=== PATIENT | male | born 1935 | race Caucasian/White ===

== ENCOUNTER 2018-11-29 18:58 | Observation (INO) ==
--- NOTE | 2018-11-29 20:07 | Emergency Department Note ---
Disposition Clinical Impression: Frequent falls, Thrombocytopenia, Delirium Disposition: Admitted As Inpatient Condition: Fair Time of Disposition: 00:35 Recheck wound or abnormal lab - General Chief Complaint: ED Recheck/Abnormal Lab/Rx Stated Complaint: abnormal lab, confusion x 3 wks Time Seen by Provider: 11/29/18 19:11 Source: patient, family Mode of arrival: ambulatory Limitations: no limitations Nursing Notes Reviewed: Yes Vital Signs Reviewed: Yes - History of Present Illness HPI Narrative: 83-year-old male with history of thrombocytopenia arrives to the emergency Department roughly 2-3 weeks of intermittent episodes of confusion. The patient was noted to have a low platelet count at 10 1 day ago upon drawing of labs. In addition the patient is been experiencing intermittent episodes of confusion and intermittent chest pain that occurred roughly 2 hours last night. The patient's significant other was instructed to bring the patient to the emergency department via private vehicle from PCP. Patient denies any complaints at this time other than having numerous falls complaining of some bruising on bilateral aspects of the abdomen. Denies any headache, fevers, chills, difficulty breathing. He is lucid and answering questions appropriately. He is able to an swer what year it is, where he is at and what his name is. - Related Data Home Medications Medication Instructions Recorded Confirmed Albuterol Sulfate [Proair Hfa] 2 puff IH PRN PRN 08/02/16 09/02/18 Amlodipine Besylate 10 mg PO DAILY 08/02/16 09/02/18 Carbidopa/Levodopa 25/100 [Sinemet 1 each PO TID 08/02/16 09/02/18 25/100] Metoprolol Succinate 50 mg PO DAILY 08/02/16 09/02/18 Nitroglycerin [Nitrostat] 0.4 mg SL PRN PRN 08/02/16 09/02/18 Alendronate Sodium [Fosamax] 70 mg PO TH 06/19/17 09/02/18 Atorvastatin Calcium [Lipitor] 20 mg PO DAILY 06/19/17 09/02/18 Cholecalciferol (Vitamin D3) 10,000 unit PO QWEEK 06/19/17 09/02/18 [Vitamin D3] Levothyroxine [Synthroid] 25 mcg PO DAILY 06/19/17 09/02/18 Multivitamin [One Daily Essential] 1 each PO DAILY 06/19/17 09/02/18 Tizanidine HCl [Zanaflex] 4 mg PO DAILY 06/19/17 09/02/18 Gabapentin [Neurontin] 300 mg PO HS 09/02/18 09/02/18 Oxycodone HCl/Acetaminophen 1 each PO HS 09/02/18 09/02/18 [Percocet 5-325 mg Tablet] Allergies Allergy/AdvReac Type Severity Reaction Status Date / Time No Known Allergies Allergy Verified 11/29/18 20:56 All systems ED: reviewed and negative except as stated. Constitutional: Denies: fever, chills, weakness ENT ED: Denies: dysphagia Cardiovascular: Reports: chest pain. Denies: dyspnea on exertion, edema, syncope Respiratory: Denies: dyspnea Gastrointestinal: Reports: abdominal pain. Denies: nausea, vomiting, diarrhea, constipation Genitourinary: Denies: urgency, dysuria Musculoskeletal: Denies: back pain, arthralgia, myalgia Integumentary: Denies: rash Neurological: Reports: confusion. Denies: headache Hematological/Lymphatic: Reports: easy bruising Past Medical History - Past Medical History Attestation: Yes The following information was validated with the patient. Source: patient, old records reviewed Medical history: Reports: cancer, CHF, coronary artery disease, CVA, hyperlipidemia, hypertension, myocardial infarction Surgical history: Reports: angioplasty/stent, cholecystectomy Psychiatric history: Reports: no psych history - Social History Smoking Status: Former smoker Smokeless Tobacco Status: No Alcohol use: Reports: none Drug use: Reports: none Physical Exam - General Limitations: no limitations General appearance: alert, in no apparent distress - Head Head exam: atraumatic, normocephalic, normal inspection - Eye Eye exam: Present: normal appearance - ENT ENT exam: normal exam, normal oropharynx, mucous membranes moist - Neck Neck exam: Present: normal inspection, full ROM, trachea midline - Chest Chest inspection: Present: normal inspection, symmetric chest wall rise - Respiratory Respiratory exam: Present: normal lung sounds bilaterally - Cardiovascular Cardiovascular exam: Present: normal rhythm, bradycardia, normal heart sounds - Abdominal Exam Abdominal exam: Present: soft, Non-Tender, other (Ecchymosis to bilateral flank.). Absent: tenderness, distention, guarding, rebound, rigidity - Extremities Exam Extremities exam: Present: normal inspection, full ROM, normal capillary refill. Absent: tenderness, pedal edema - Neurological Exam Neurological exam: Present: alert, oriented X3 - Skin Skin exam: Present: warm, dry, intact Course Vital Signs Temperature 98.4 F 11/29/18 19:11 Pulse Rate 58 11/29/18 19:11 Respiratory Rate 18 11/29/18 19:11 Blood Pressure 132/79 11/29/18 19:11 O2 Sat by Pulse Oximetry 96 11/29/18 19:11 Temperature 97.9 F 11/29/18 23:19 Pulse Rate 66 11/29/18 23:19 Respiratory Rate 18 11/29/18 23:19 Blood Pressure 146/82 11/29/18 23:19 O2 Sat by Pulse Oximetry 96 11/29/18 23:19 Oxygen Delivery Oxygen Delivery Room Air Recheck wound or abnormal lab - MDM Narrative Medical decision making narrative: Patient's workup in the emergency department demonstrates findings concerning with bruising and bilateral abdominal flanks with a negative CT scan of the abdomen and pelvis. Patient is been expressing multiple falls and combined with his thrombocyte PDM concerned about the patient. The patient will be admitted to the hospital at this time. He had an episode of chest pain one day ago as well. His troponin is negative and EKG given streets no acute process. The patient will be admitted to the hospital given the patient's frequent falls, generalized weakness, intermittent episodes of confusion as well as the patient's thrombocytopenia. Family made aware and agrees to plan. No further questions or concerns noted. - Lab Data Lab results reviewed: Yes I reviewed the patient's lab results. Result diagrams: 11/29/18 19:45 11/29/18 19:45 Lab Results 11/29/18 11/29/18 11/29/18 Range/Units 19:45 19:45 19:45 WBC 4.6 (4.3-11.1) K/mcL RBC 3.78 L (4.19-5.50) M/mcL Hgb 11.3 L (12.9-16.9) g/dL Hct 34.6 L (37.5-50.1) % MCV 91.5 (83.0-100.0) fL MCH 29.9 (28.0-33.3) pg MCHC 32.7 (31.6-35.5) g/dL RDW 13.6 (11.5-14.5) % Plt Count 59 L (140-400) K/mcL MPV 12.6 H (9.4-12.4) fL Seg Neutrophils % 48.0 % Band Neutrophils % 2.0 (0-4) % Lymphocytes % 34.0 % Monocytes % 16.0 % Neutrophils # 2.3 (1.6-8.9) K/mcL Lymphocytes # 1.6 (0.6-4.6) K/mcL Monocytes # 0.7 (0.0-1.3) K/mcL Reactive Lymphocytes Present A (Not Present) Smudge Cells Present A (Not Present) Platelet Estimate Decreased L (Normal) Immature Plt Fraction 9.3 H (1.1-6.1) % PT (9.4-12.1) Seconds INR APTT (26.0-36.0) Seconds Sodium 140 (136-145) mEq/L Potassium 4.2 (3.5-5.1) mEq/L Chloride 108 H (98-107) mEq/L Carbon Dioxide 22 L (23-29) mEq/L BUN 19 (8-23) mg/dL Creatinine 1.68 H (0.70-1.30) mg/dL Est GFR ( Amer) 47 L (> 60) Est GFR (Non-Af Amer) 39 L (> 60) BUN/Creatinine Ratio 11 (6-26) Glucose 99 (70-105) mg/dL Calculated Osmolality 292 (280-300) Calcium 9.1 (8.6-10.3) mg/dL Total Bilirubin 0.6 (0.3-1.0) mg/dL Direct Bilirubin 0.1 (0.0-0.2) mg/dL Indirect Bilirubin 0.5 (0.0-1.2) mg/dL AST 19 (13-39) Units/L ALT 19 (7-52) Units/L Alkaline Phosphatase 63 (34-104) Units/L Troponin I < 0.03 (< 0.04) ng/mL Serum Total Protein 6.9 (6.4-8.9) g/dL Albumin 4.1 (3.5-5.7) g/dL Globulin 2.8 (2.4-3.5) g/dL Albumin/Globulin Ratio 1.5 (1.1-2.2) Blood Type A NEGATIVE Antibody Screen NEGATIVE 11/29/18 Range/Units 19:45 WBC (4.3-11.1) K/mcL RBC (4.19-5.50) M/mcL Hgb (12.9-16.9) g/dL Hct (37.5-50.1) % MCV (83.0-100.0) fL MCH (28.0-33.3) pg MCHC (31.6-35.5) g/dL RDW (11.5-14.5) % Plt Count (140-400) K/mcL MPV (9.4-12.4) fL Seg Neutrophils % % Band Neutrophils % (0-4) % Lymphocytes % % Monocytes % % Neutrophils # (1.6-8.9) K/mcL Lymphocytes # (0.6-4.6) K/mcL Monocytes # (0.0-1.3) K/mcL Reactive Lymphocytes (Not Present) Smudge Cells (Not Present) Platelet Estimate (Normal) Immature Plt Fraction (1.1-6.1) % PT 11.6 (9.4-12.1) Seconds INR 1.0 APTT 31.4 (26.0-36.0) Seconds Sodium (136-145) mEq/L Potassium (3.5-5.1) mEq/L Chloride (98-107) mEq/L Carbon Dioxide (23-29) mEq/L BUN (8-23) mg/dL Creatinine (0.70-1.30) mg/dL Est GFR ( Amer) (> 60) Est GFR (Non-Af Amer) (> 60) BUN/Creatinine Ratio (6-26) Glucose (70-105) mg/dL Calculated Osmolality (280-300) Calcium (8.6-10.3) mg/dL Total Bilirubin (0.3-1.0) mg/dL Direct Bilirubin (0.0-0.2) mg/dL Indirect Bilirubin (0.0-1.2) mg/dL AST (13-39) Units/L ALT (7-52) Units/L Alkaline Phosphatase (34-104) Units/L Troponin I (< 0.04) ng/mL Serum Total Protein (6.4-8.9) g/dL Albumin (3.5-5.7) g/dL Globulin (2.4-3.5) g/dL Albumin/Globulin Ratio (1.1-2.2) Blood Type Antibody Screen - Radiology Data Radiology results reviewed: Yes I reviewed the patient's radiology results. Abdomen/Pelvis CT 11/29/18 19:29 IMPRESSION: Findings in the bladder could represent cystitis or could be secondary to outlet obstruction from prostatomegaly. Abdominal aorta measures up to 3 cm. Current guidelines recommend follow-up every 3 years. D/ / Dudley Montes MD / Dudley Montes MD Interpreting Provider: Dudley Montes MD Head CT 11/29/18 19:29 IMPRESSION: No acute intracranial abnormality. Stable exam. Chronic parenchymal volume loss and chronic white matter microangiopathic ischemic changes. D/ / 11/29/2018 20:29:07 Fer Gandhi MD / rosario Interpreting Provider: Fer Gandhi MD - EKG Data EKG attestation: Yes I reviewed and interpreted this EKG. EKG results narrative: Heart rate 57 beats for minute. Normal sinus rhythm. No ST elevation but mild ST depression noted in lead V2 and V3. Widening QRS consistent with a right bundle branch block. No other acute process noted.
[2018-11-29 20:11] LABS: Hematocrit 34.6 % (37.5-50.1); Hemoglobin 11.3 g/dL (12.9-16.9); Immature Platelets 9.3 % (1.1-6.1); Mean Corpuscular HGB Conc 32.7 g/dL (31.6-35.5); Mean Corpuscular Hemoglobin 29.9 pg (28.0-33.3); Mean Corpuscular Volume 91.5 fL (83.0-100.0); Mean Platelet Volume 12.6 fL (9.4-12.4); Platelet Count 59 K/mcL (140-400); Red Blood Count 3.78 M/mcL (4.19-5.50); Red Cell Distribution Width 13.6 % (11.5-14.5)
[2018-11-29 20:37] LABS: Lymphocytes # 1.6 K/mcL (0.6-4.6); Monocytes # 0.7 K/mcL (0.0-1.3); Neutrophils # 2.3 K/mcL (1.6-8.9); Platelet Estimate Decreased (Normal); Reactive Lymphocytes Present (Not Present); Smudge Cells Present (Not Present)
[2018-11-29 20:38] LABS: Alanine Aminotransferase 19 Units/L (7-52); Albumin 4.1 g/dL (3.5-5.7); Albumin/Globulin Ratio 1.5 (1.1-2.2); Alkaline Phosphatase 63 Units/L (34-104); Aspartate Amino Transferase 19 Units/L (13-39); BUN/Creatinine Ratio 11 (6-26); Bilirubin,Direct 0.1 mg/dL (0.0-0.2); Bilirubin,Indirect 0.5 mg/dL (0.0-1.2); Bilirubin,Total 0.6 mg/dL (0.3-1.0); Blood Urea Nitrogen 19 mg/dL (8-23); Calcium 9.1 mg/dL (8.6-10.3); Carbon Dioxide 22 mEq/L (23-29); Chloride 108 mEq/L (98-107); Globulin 2.8 g/dL (2.4-3.5); Glucose 99 mg/dL (70-105); Osmolality,Calculated 292 (280-300); Potassium 4.2 mEq/L (3.5-5.1); Sodium 140 mEq/L (136-145); Total Protein 6.9 g/dL (6.4-8.9); Troponin I < 0.03 ng/mL (< 0.04); eGFR For Non-African Americans 39 (> 60)
--- NOTE | 2018-11-29 21:16 | Emergency Department Note ---
Disposition Clinical Impression: Frequent falls, Thrombocytopenia, Delirium Disposition: Admitted As Inpatient Condition: Fair General Adult HPI - General Chief complaint: ED Recheck/Abnormal Lab/Rx Stated complaint: abnormal lab, confusion x 3 wks/cp &abd pain Time Seen by Provider: 11/29/18 19:11 Source: patient, family Mode of arrival: ambulatory Limitations: no limitations Nursing Notes Reviewed: Yes Vital Signs Reviewed: Yes - History of Present Illness Pain Scale: 6 - Related Data Home Medications Medication Instructions Recorded Confirmed Albuterol Sulfate [Proair Hfa] 2 puff IH PRN PRN 08/02/16 09/02/18 Amlodipine Besylate 10 mg PO DAILY 08/02/16 09/02/18 Carbidopa/Levodopa 25/100 [Sinemet 1 each PO TID 08/02/16 09/02/18] Metoprolol Succinate 50 mg PO DAILY 08/02/16 09/02/18 Nitroglycerin [Nitrostat] 0.4 mg SL PRN PRN 08/02/16 09/02/18 Alendronate Sodium [Fosamax] 70 mg PO TH 06/19/17 09/02/18 Atorvastatin Calcium [Lipitor] 20 mg PO DAILY 06/19/17 09/02/18 Cholecalciferol (Vitamin D3) 10,000 unit PO QWEEK 06/19/17 09/02/18 [Vitamin D3] Levothyroxine [Synthroid] 25 mcg PO DAILY 06/19/17 09/02/18 Multivitamin [One Daily Essential] 1 each PO DAILY 06/19/17 09/02/18 Tizanidine HCl [Zanaflex] 4 mg PO DAILY 06/19/17 09/02/18 Gabapentin [Neurontin] 300 mg PO HS 09/02/18 09/02/18 Oxycodone HCl/Acetaminophen 1 each PO HS 09/02/18 09/02/18 [Percocet 5-325 mg Tablet] Allergies Allergy/AdvReac Type Severity Reaction Status Date / Time No Known Allergies Allergy Verified 11/29/18 20:56 Constitutional: Denies: fever, chills, weakness ENT ED: Denies: dysphagia Cardiovascular: Reports: chest pain. Denies: dyspnea on exertion, edema, syncope Respiratory: Denies: dyspnea Gastrointestinal: Reports: abdominal pain. Denies: nausea, vomiting, diarrhea, constipation Genitourinary: Denies: urgency, dysuria Musculoskeletal: Denies: back pain, arthralgia, myalgia Integumentary: Denies: rash Neurological: Reports: confusion. Denies: headache Hematological/Lymphatic: Reports: easy bruising Past Medical History - Past Medical History Medical history: Reports: cancer, CHF, coronary artery disease, CVA, hyperlipidemia, hypertension, myocardial infarction Surgical history: Reports: angioplasty/stent, cholecystectomy Psychiatric history: Reports: no psych history - Social History Smoking Status: Former smoker Smokeless Tobacco Status: No Alcohol use: Reports: none Drug use: Reports: none Physical Exam - General Limitations: no limitations General appearance: alert, in no apparent distress Course Vital Signs Temperature 98.4 F 11/29/18 19:11 Pulse Rate 58 11/29/18 19:11 Respiratory Rate 18 11/29/18 19:11 Blood Pressure 132/79 11/29/18 19:11 O2 Sat by Pulse Oximetry 96 11/29/18 19:11 Temperature 98.2 F 11/30/18 03:53 Pulse Rate 75 11/30/18 03:53 Respiratory Rate 16 11/30/18 03:53 Blood Pressure 122/63 11/30/18 03:53 O2 Sat by Pulse Oximetry 94 11/30/18 03:53 Oxygen Delivery Oxygen Delivery Room Air Medical Decision Making - Medical Records Medical records reviewed: Yes I reviewed the patient's medical records. - Lab Data Lab results reviewed: Yes I reviewed the patient's lab results. Result diagrams: 11/29/18 19:45 11/29/18 19:45 Lab Results 11/29/18 11/29/18 11/29/18 Range/Units 19:45 19:45 19:45 WBC 4.6 (4.3-11.1) K/mcL RBC 3.78 L (4.19-5.50) M/mcL Hgb 11.3 L (12.9-16.9) g/dL Hct 34.6 L (37.5-50.1) % MCV 91.5 (83.0-100.0) fL MCH 29.9 (28.0-33.3) pg MCHC 32.7 (31.6-35.5) g/dL RDW 13.6 (11.5-14.5) % Plt Count 59 L (140-400) K/mcL MPV 12.6 H (9.4-12.4) fL Seg Neutrophils % 48.0 % Band Neutrophils % 2.0 (0-4) % Lymphocytes % 34.0 % Monocytes % 16.0 % Neutrophils # 2.3 (1.6-8.9) K/mcL Lymphocytes # 1.6 (0.6-4.6) K/mcL Monocytes # 0.7 (0.0-1.3) K/mcL Reactive Lymphocytes Present A (Not Present) Smudge Cells Present A (Not Present) Platelet Estimate Decreased L (Normal) Immature Plt Fraction 9.3 H (1.1-6.1) % PT (9.4-12.1) Seconds INR APTT (26.0-36.0) Seconds Sodium 140 (136-145) mEq/L Potassium 4.2 (3.5-5.1) mEq/L Chloride 108 H (98-107) mEq/L Carbon Dioxide 22 L (23-29) mEq/L BUN 19 (8-23) mg/dL Creatinine 1.68 H (0.70-1.30) mg/dL Est GFR ( Amer) 47 L (> 60) Est GFR (Non-Af Amer) 39 L (> 60) BUN/Creatinine Ratio 11 (6-26) Glucose 99 (70-105) mg/dL Calculated Osmolality 292 (280-300) Calcium 9.1 (8.6-10.3) mg/dL Total Bilirubin 0.6 (0.3-1.0) mg/dL Direct Bilirubin 0.1 (0.0-0.2) mg/dL Indirect Bilirubin 0.5 (0.0-1.2) mg/dL AST 19 (13-39) Units/L ALT 19 (7-52) Units/L Alkaline Phosphatase 63 (34-104) Units/L Troponin I < 0.03 (< 0.04) ng/mL Serum Total Protein 6.9 (6.4-8.9) g/dL Albumin 4.1 (3.5-5.7) g/dL Globulin 2.8 (2.4-3.5) g/dL Albumin/Globulin Ratio 1.5 (1.1-2.2) Blood Type A NEGATIVE Antibody Screen NEGATIVE 11/29/18 Range/Units 19:45 WBC (4.3-11.1) K/mcL RBC (4.19-5.50) M/mcL Hgb (12.9-16.9) g/dL Hct (37.5-50.1) % MCV (83.0-100.0) fL MCH (28.0-33.3) pg MCHC (31.6-35.5) g/dL RDW (11.5-14.5) % Plt Count (140-400) K/mcL MPV (9.4-12.4) fL Seg Neutrophils % % Band Neutrophils % (0-4) % Lymphocytes % % Monocytes % % Neutrophils # (1.6-8.9) K/mcL Lymphocytes # (0.6-4.6) K/mcL Monocytes # (0.0-1.3) K/mcL Reactive Lymphocytes (Not Present) Smudge Cells (Not Present) Platelet Estimate (Normal) Immature Plt Fraction (1.1-6.1) % PT 11.6 (9.4-12.1) Seconds INR 1.0 APTT 31.4 (26.0-36.0) Seconds Sodium (136-145) mEq/L Potassium (3.5-5.1) mEq/L Chloride (98-107) mEq/L Carbon Dioxide (23-29) mEq/L BUN (8-23) mg/dL Creatinine (0.70-1.30) mg/dL Est GFR ( Amer) (> 60) Est GFR (Non-Af Amer) (> 60) BUN/Creatinine Ratio (6-26) Glucose (70-105) mg/dL Calculated Osmolality (280-300) Calcium (8.6-10.3) mg/dL Total Bilirubin (0.3-1.0) mg/dL Direct Bilirubin (0.0-0.2) mg/dL Indirect Bilirubin (0.0-1.2) mg/dL AST (13-39) Units/L ALT (7-52) Units/L Alkaline Phosphatase (34-104) Units/L Troponin I (< 0.04) ng/mL Serum Total Protein (6.4-8.9) g/dL Albumin (3.5-5.7) g/dL Globulin (2.4-3.5) g/dL Albumin/Globulin Ratio (1.1-2.2) Blood Type Antibody Screen - Radiology Data Radiology results reviewed: Yes I reviewed the patient's radiology results. Abdomen/Pelvis CT 11/29/18 19:29 IMPRESSION: Findings in the bladder could represent cystitis or could be secondary to outlet obstruction from prostatomegaly. Abdominal aorta measures up to 3 cm. Current guidelines recommend follow-up every 3 years. D/ / Dudley Montes MD / Dudley Montes MD Interpreting Provider: Dudley Montes MD Head CT 11/29/18 19:29 IMPRESSION: No acute intracranial abnormality. Stable exam. Chronic parenchymal volume loss and chronic white matter microangiopathic ischemic changes. D/ / 11/29/2018 20:29:07 Fer Gandhi MD / rosario Interpreting Provider: Fer Gandhi MD - EKG Data EKG #1 EKG attestation: Yes I reviewed and interpreted this EKG. EKG results narrative: EKG shows sinus bradycardia with rate of 57. PACs. No ST segment elevation or depression. Attestation Statement - Attestation Attestation: I, Jose Reddy MD, personally evaluated this patient and discussed their m anagement with the resident physician. I reviewed the resident's note and agree with the documented findings, medical decision making, and plan of care. 83-year-old male presents to the emergency department with complaint of low platelets. reports he has a history of low platelets. She reports that over the past 3 weeks patient has had increased confusion episodically. He is a lso had increased generalized weakness and frequent falls. He has not hit his head. He was seen by his PCP 2 days ago for the confusion and had lab work done. Apparently they were called at home today and advised that his platelets 10 and he needed to come immediately to the emergency department. Patient has had no abnormal bleeding. No melena or hematochezia. No hematuria. No epistaxis. He does have multiple bruises from falling but states he has always bruised easily and this is not unusual. He has followed by hematology oncology for his thrombocytopenia per . also reports that last night during the night he had an episode of severe substernal chest pain that lasted about 2 hours. She states he was short of breath and diaphoretic with the chest pain. Patient describes it as indigestion. He does have a history of coronary artery stents. He denies chest pain at present. On examination patient is a well-developed well-nourished well-appearing elderly male in no acute distress. He is alert and oriented 3. There is no cyanosis or diaphoresis. Chest is nontender to palpation. Breath sounds are clear and equal bilaterally. Heart regular rate and rhythm. Abdomen soft and nontender with normal bowel sounds. EKG shows sinus bradycardia with a rate of 57 with PACs. No acute ischemic changes. Head CT negative. CT the abdomen and pelvis negative for acute abnormality. Labs reviewed. Platelets 59. The hospitalist, Dr. Zamarripa, was consulted and accepted admission of the patient.
[2018-11-29 21:37] LABS: Prothrombin Time 11.6 Seconds (9.4-12.1)
[2018-11-29 21:40] LABS: Activated Partial Thrombo Time 31.4 Seconds (26.0-36.0)
[2018-11-29 22:07] LABS: Bilirubin,Urine Negative (Negative); Blood,Urine Negative (Negative); Clarity,Urine Clear (Clear); Color,Urine Yellow (Yellow); Glucose,Urine (UA) Normal (Normal); Ketones,Urine Negative (Negative); Leukocyte Esterase,Urine Trace (Negative); Nitrite,Urine Negative (Negative); Protein,Urine 100 mg/dL (Neg-Trace); Specific Gravity,Urine 1.013 (1.010-1.025); Urobilinogen,Urine Normal (Normal)
[2018-11-29 22:09] LABS: Bacteria,Urine None Seen per hpf (None-Few); Hyaline Casts,Urine None Seen per lpf (None-Few); RBC,Urine 0-3 per hpf (0-3); Squamous Epithelial Cell,Urine Many per lpf (None-Few)
[2018-11-29] MEDS ORDERED: Naloxone 0.4 MG/ML INJ IVP PRN (23:31)
[2018-11-29] MEDS ORDERED: Acetaminophen 325 MG TABLET PO PRN (23:31)
[2018-11-29] MEDS ORDERED: Ondansetron 4 MG/2 ML VIAL IVP PRN (23:31)
[2018-11-30] MEDS: 0.9 % Sodium Chloride 1,000 ML IVC SCH ×2 (00:32→13:36)
--- NOTE | 2018-11-30 01:20 | Internal Med History&Physical ---
Date of Encounter: 11/29/18 Time of Encounter: 22:00 Internal Medicine - H&P: HPI Chief complaint: falls; bruising; weakness Admitted From: Emergency Dept Plans for Post Hospital Care: Home History of present illness: Mr. Lau is an 83 year old male who presents with history of increased falling lately, bruising to his chest and abdomen, and increasing episodes of forgetfulness. Workup in ER revealed patient to be thrombocytopenic. This prompted imaging of his head which was negative. He also had CT of abdomen and pelvis which suggested possible cystitis. Otherwise, imaging findings were negative. Because of his falling risk and thrombocytopenia, patient was admitted to hospitalist service. Of note, there were verbal reports by family stating he had blood work done by his PCP a few days ago with platelet count of 10,000. Upon my assessment of the patient, he and his confirmed the above history. Patient is completely alert and oriented 3. 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 He has no altered mental status. However, his states he has been having bouts of increased forgetfulness over the last 3-4 weeks. He has no history of dementia, but she is concerned he might be developing dementia. He has had no head trauma whatsoever. He did fall in the bathtub yesterday and today sustaining injury to his left rib cage and right abdomen area. I reviewed old records and note that he has chronic thrombocytopenia and is followed with oncology here. He has had workup in the past which was negative. His platelet count runs on average around 70-80,000. He has had no fever, cough, congestion, chest pain, shortness of breath, vomiting, diarrhea, dysuria, or hematuria. Oral and fluid intake have been normal. He has difficulty ambulating due to his old stroke. He uses a motorized scooter, but he does ambulate some with assistance from his . The left-sided deficits are chronic and not new. Past Med Surg Social Fam HX - Past Medical History Attestation: Yes The following information was validated with the patient. Source: patient, old records reviewed, obtained from family Medical history: cancer, CHF, coronary artery disease, CVA, hyperlipidemia, hypertension, myocardial infarction Additional medical history: skin cancer Psychiatric history: no psych history - Past Surgical History Surgical History: angioplasty/stent, cholecystectomy Additional surgical history: cardiac stents x 2 - Social History Smoking Status: Former smoker Smokeless Tobacco Status: No Alcohol use: none Drug use: none Current living situation: Home, With Family Activity Level: Mostly sedentary, Other (scooter) Recent Out of Country Travel Within the Last 8 Weeks: No - Family History Mother Living Status: Hx Family Neuromuscular Disorders: No Hx Family Neurologic Disorders: No Father Living Status: Hx Family Neurologic Disorders: No Internal Medicine - H&P: Meds Albuterol Sulfate [Proair Hfa] 2 puff IH PRN PRN 08/02/16 [History] Amlodipine Besylate 10 mg PO DAILY 08/02/16 [History] Carbidopa/Levodopa 25/100 [Sinemet 25/] 1 each PO TID 08/02/16 [History] Metoprolol Succinate 50 mg PO DAILY 08/02/16 [History] Nitroglycerin [Nitrostat] 0.4 mg SL PRN PRN 08/02/16 [History] Alendronate Sodium [Fosamax] 70 mg PO TH 06/19/17 [History] Atorvastatin Calcium [Lipitor] 20 mg PO DAILY 06/19/17 [History] Cholecalciferol (Vitamin D3) [Vitamin D3] 10,000 unit PO QWEEK 06/19/17 [History] Levothyroxine [Synthroid] 25 mcg PO DAILY 06/19/17 [History] Multivitamin [One Daily Essential] 1 each PO DAILY 06/19/17 [History] Tizanidine HCl [Zanaflex] 4 mg PO DAILY 06/19/17 [History] Gabapentin [Neurontin] 300 mg PO HS 09/02/18 [History] Oxycodone HCl/Acetaminophen [Percocet 5-325 mg Tablet] 1 each PO HS 09/02/18 [History] Allergy/AdvReac Type Severity Reaction Status Date / Time No Known Allergies Allergy Verified 11/29/18 20:56 - Constitutional Constitutional: falls, no chills, no fever(s), no night sweats - EENT Eyes: no blurry vision, no change in vision Ears: no ear pain, no tinnitus Nose, mouth and throat: no nasal congestion, no sinus pressure, no sore throat - Cardiovascular Cardiovascular ROS IM: no chest pain, no dyspnea, no lightheadedness, no ortho pnea, no paroxysmal nocturnal dyspnea, no syncope - Respiratory Respiratory: no cough, no chest congestion, no excessive phlegm production, no change in phlegm color, no pain with cough - Gastrointestinal Gastrointestinal: no abdominal pain, no diarrhea, no hematemesis, no hematochezia, no melena, no vomiting - Genitourinary Genitourinary ROS male: no dysuria, no flank pain, no hematuria - Musculoskeletal Musculoskeletal ROS IM: no arthralgias, no back pain - Integumentary Integumentary IM: no rash, no jaundice - Neurological Neurological ROS: frequent falls, no confusion, no convulsions, no dizziness, no focal weakness, no headache(s), no numbness, no paresthesias, no vertigo Additional comments: + chronic left sided weakness LUE/LLE - Psychiatric Psychiatric: no anxiety, no depression - Endocrine Endocrine IM: no cold intolerance, no heat intolerance, no polydipsia, no polyuria - Hematologic/Lymphatic Hematologic/Lymphatic: easy bruising - Allergic/Immunologic Allergic/Immunologic: no GI upset with certain foods - Constitutional Vitals: Temp Pulse Resp BP Pulse Ox 97.9 F 66 18 146/82 96 11/29/18 23:19 11/29/18 23:19 11/29/18 23:19 11/29/18 23:19 11/29/18 23:19 General appearance: Present: cooperative, A&O X 3, pleasant, answers questions appropriately Exam: see below - Head Head exam: Present: atraumatic, normal inspection, normocephalic Additional comments: no sign of head injury, bruising, or laceration - Eye Eye exam: Present: EOMI, PERRL. Absent: scleral icterus Pupils: Absent: normal accommodation - ENT ENT exam: Present: mucous membranes dry, normal exam, normal oropharynx - Neck Neck exam general surgery: Present: full ROM, normal inspection, supple, trachea midline. Absent: tenderness, nuchal rigidity, thyromegaly - Respiratory Respiratory exam: Present: CTAB. Absent: chest wall tenderness, rales, respiratory distress, rhonchi, wheezes - Cardiovascular Cardiovascular exam: Present: distant heart sounds, +S1, +S2. Absent: diastolic murmur, systolic murmur Additional comments: occasional ectopy - GI/Abdominal GI/Abdominal exam: Present: soft. Absent: guarding, hepatomegaly, rebound, splenomegaly, tenderness Additional comments: bruising to left upper anterior/side flank area and right anterior area - Extremities Exam Extremities exam: Present: joint swelling, normal capillary refill, warm, radial pulses palpable and symmetrical. Absent: calf tenderness, pedal edema, tenderness - Back Exam Back exam: Absent: CVA tenderness (L), CVA tenderness (R) - Neurological Exam Neurological exam: Present: alert, CN II-XII intact, oriented X3. Absent: no focal deficits (left sided weakness in LUE/LLE - chronic) - Psychiatric Psychiatric exam: Present: normal affect, normal mood - Skin Skin exam: Present: dry, intact, warm Internal Med - H&P Results - Labs CBC & Chem 7: 11/29/18 19:45 11/29/18 19:45 Labs: Short CBC 11/29/18 Range/Units 19:45 WBC 4.6 (4.3-11.1) K/mcL Hgb 11.3 L (12.9-16.9) g/dL Hct 34.6 L (37.5-50.1) % Plt Count 59 L (140-400) K/mcL Neutrophils # 2.3 (1.6-8.9) K/mcL BMP 11/29/18 19:45 Sodium 140 Potassium 4.2 Chloride 108 H Carbon Dioxide 22 L BUN 19 Creatinine 1.68 H Glucose 99 Calcium 9.1 Cardiac Enzymes 11/29/18 Range/Units 19:45 Troponin I < 0.03 (< 0.04) ng/mL Liver Function 11/29/18 Range/Units 19:45 Total Bilirubin 0.6 (0.3-1.0) mg/dL Direct Bilirubin 0.1 (0.0-0.2) mg/dL AST 19 (13-39) Units/L ALT 19 (7-52) Units/L Alkaline Phosphatase 63 (34-104) Units/L Albumin 4.1 (3.5-5.7) g/dL Urine 11/29/18 Range/Units 21:50 Urine Color Yellow (Yellow) Urine Clarity Clear (Clear) Urine pH 6.0 (5.0-8.0) pH Units Ur Specific Wilson 1.013 (1.010-1.025) Urine Protein 100 H (Neg-Trace) mg/dL Urine Glucose (UA) Normal (Normal) mg/dL - EKG Data -: EKG Interpreted by Myself - EKG Data Prior EKG available for review: yes When compared to previous EKG: there is no significant change EKG comments: 11/30/18 01:26 sinus rhythm with PAC's; no acute changes - Impressions ITS Impressions Abdomen/Pelvis CT 11/29/18 19:29 IMPRESSION: Findings in the bladder could represent cystitis or could be secondary to outlet obstruction from prostatomegaly. Abdominal aorta measures up to 3 cm. Current guidelines recommend follow-up every 3 years. D/ / Dudley Montes MD / Dudley Montes MD Interpreting Provider: Dudley Montes MD Head CT 11/29/18 19:29 IMPRESSION: No acute intracranial abnormality. Stable exam. Chronic parenchymal volume loss and chronic white matter microangiopathic ischemic changes. D/ / 11/29/2018 20:29:07 Fer Gandhi MD / rosario Interpreting Provider: Fer Gandhi MD - Diagnostic Studies CT scan - head Status: image reviewed by me (negative) - Assessment and Plan (1) Frequent falls Current Visit: Yes Status: Acute Assessment and plan: 1. Will place in fall precautions. 2. Consult PT/OT. 3. Neurochecks ordered. (2) CAD (coronary artery disease) Current Visit: Yes Status: Chronic Assessment and plan: 1. No current symptoms. 2. Resume home meds as appropriate once verified. 3. Hold ASA/Plavix due to thrombocytopenia and falling. 4. Monitor on telemetry. Qualifiers: Coronary Disease-Associated Artery/Lesion type: [place] artery [place] vs. transplanted heart: [place] heart Associated angina: without angina Qualified Code(s): I25.10 - Atherosclerotic heart disease of [place] coronary artery without angina pectoris (3) Thrombocytopenia Current Visit: Yes Status: Chronic Assessment and plan: 1. Monitor platelet count. 2. Falls precautions. 3. Consult hematology for guidance, further work-up as necessary. (4) Altered mental status Current Visit: Yes Status: Ruled-out Assessment and plan: 1. Based upon history and exam, patient exhibits no sign of encephalopathy. 2. reports periods of chronic forgetfulness which may be a sign of dementia symptoms. 3. Monitor clinically. Qualifiers: Altered mental status type: unspecified Qualified Code(s): R41.82 - Altered mental status, unspecified (5) DVT prophylaxis Current Visit: Yes Status: Acute Assessment and plan: 1. EPCD's.
[2018-11-30 07:28] LABS: Basophils % 0.3 %; Eosinophils % 0.6 %; Hematocrit 32.5 % (37.5-50.1); Hemoglobin 10.7 g/dL (12.9-16.9); Immature Granulocytes % 1.7 % (0-4); Immature Platelets 9.1 % (1.1-6.1); Lymphocytes # 1.2 K/mcL (0.6-4.6); Lymphocytes % 32.3 %; Mean Corpuscular HGB Conc 32.9 g/dL (31.6-35.5); Mean Corpuscular Hemoglobin 30.1 pg (28.0-33.3); Mean Corpuscular Volume 91.3 fL (83.0-100.0); Mean Platelet Volume 12.7 fL (9.4-12.4); Monocytes # 0.9 K/mcL (0.0-1.3); Monocytes % 23.9 %; Neutrophils # 1.5 K/mcL (1.6-8.9); Red Blood Count 3.56 M/mcL (4.19-5.50); Red Cell Distribution Width 13.5 % (11.5-14.5); Segmented Neutrophils % 41.2 %
[2018-11-30 07:37] LABS: Platelet Count 53 K/mcL (140-400)
[2018-11-30 07:38] LABS: Platelet Estimate Decreased (Normal); Prothrombin Time 11.7 Seconds (9.4-12.1)
[2018-11-30 07:41] LABS: Activated Partial Thrombo Time 30.6 Seconds (26.0-36.0); Albumin 3.8 g/dL (3.5-5.7); Albumin/Globulin Ratio 1.4 (1.1-2.2); Bilirubin,Total 0.5 mg/dL (0.3-1.0); Calcium 8.7 mg/dL (8.6-10.3); Globulin 2.8 g/dL (2.4-3.5); Magnesium 1.6 mg/dL (1.6-2.6); Potassium 4.2 mEq/L (3.5-5.1); Total Protein 6.6 g/dL (6.4-8.9)
--- NOTE | 2018-11-30 09:21 | Oncology Inp Consult Note ---
Date of Encounter: 11/30/18 Time of Encounter: 09:00 Assessment and Plan (1) Thrombocytopenia Status: Chronic Assessment and plan: Thrombocytopenia: since , w/u negative--including flow cytometry, over years of progressed currently around 50,000. Patient has had chronic bruising episodes, bruising secondary to falls. No evidence of mucous membrane bleeding. Mild leukopenia anemia we will obtain additional labs today. We will follow platelet trend and treat him with his platelets declined/evidence of ac bleeding UA negative Hx heart disease and CVA, CVA/dementia per hx-wkness, PT/placement once stable Bilateral pulmonary nodules: Stable over detention I discussed above plan this AM with pt bedside - Data of Consult Requesting Physician: Allan Zamarripa MD Primary Care Provider: Prema Raines - Consult Narrative Reason for consult: thrombocytopenia History of present illness: 83 yo male patient with thrombocytopenia-cr since and mild anemia since --mild, (plt 130--98k), COPD, dementia, CHF, coronary artery disease, s/p stents, CVA, hyperlipidemia, hypertension, myocardial infarction, nonmelanoma skin cancer, left-sided weakness from previous CVA no alcohol use, prior ultrasound negative for hepatosplenomegaly as well as recent CT imaging of the abdomen without contrast, presented with frequent falls and bruising secondary to falls and generalized weakness. Patient is hard to understand when he speaks but reports that he had fallen and had sustained left side abdominal bruise. He denies any nosebleeds or blood in his stool that he has noticed. Patient carries a diagnosis of ITP, from his prior hematology visits. He denies any dysuria or diarrhea. He has chronic stable pulmonary nodules dating back to 2012. A CT head done in the emergency room did not show any acute findings. He requires a wheelchair for ambulation due to CVA, per records Past Med Surg Social Fam HX - Past Medical History Medical history: cancer, CHF, coronary artery disease, CVA, hyperlipidemia, hypertension, myocardial infarction Additional medical history: skin cancer Psychiatric history: no psych history - Past Surgical History Surgical History: angioplasty/stent, cholecystectomy Additional surgical history: cardiac stents x 2 - Social History Smoking Status: Former smoker Smokeless Tobacco Status: No Alcohol use: none Drug use: none - Family History Mother Living Status: Hx Family Neuromuscular Disorders: No Hx Family Neurologic Disorders: No Father Living Status: Hx Family Neurologic Disorders: No Medications and Allergies Albuterol Sulfate [Proair Hfa] 2 puff IH PRN PRN 08/02/16 [History] Amlodipine Besylate 10 mg PO DAILY 08/02/16 [History] Carbidopa/Levodopa 25/100 [Sinemet 25/100] 1 each PO TID 08/02/16 [History] Metoprolol Succinate 50 mg PO DAILY 08/02/16 [History] Nitroglycerin [Nitrostat] 0.4 mg SL PRN PRN 08/02/16 [History] Alendronate Sodium [Fosamax] 70 mg PO TH 06/19/17 [History] Atorvastatin Calcium [Lipitor] 20 mg PO DAILY 06/19/17 [History] Cholecalciferol (Vitamin D3) [Vitamin D3] 10,000 unit PO QWEEK 06/19/17 [History] Levothyroxine [Synthroid] 25 mcg PO DAILY 06/19/17 [History] Multivitamin [One Daily Essential] 1 each PO DAILY 06/19/17 [History] Tizanidine HCl [Zanaflex] 4 mg PO DAILY 06/19/17 [History] Gabapentin [Neurontin] 300 mg PO HS 09/02/18 [History] Oxycodone HCl/Acetaminophen [Percocet 5-325 mg Tablet] 1 each PO HS 09/02/18 [History] Allergy/AdvReac Type Severity Reaction Status Date / Time No Known Allergies Allergy Verified 11/29/18 20:56 Constitutional: Present: fatigue, frequent falls Additional comments: no epistaxis Additional comments: denied cp, sob with exertion+ Additional comments: no abd pain, kristina or hematochezia Musculoskeletal: Present: abnormal gait Additional comments: hx cva lt wkness Additional comments: low plt, easy bruising Oncology - Exam - Constitutional Vitals: per [employer] vss - Head Head exam: Present: atraumatic, normal inspection - ENT Additional comments: oral cavity-food particles, no blood clots - Neck Neck exam: Present: full ROM Additional comments: no masses palpated - Respiratory Respiratory exam: Present: CTAB - Cardiovascular Cardiovascular exam: Present: +S1, +S2, systolic murmur - GI/Abdominal GI/Abdominal exam: Present: normal bowel sounds, soft - Extremities Exam Additional comments: no pedal edema, upper ext skin changes bruising - Neurological Exam Neurological exam: Present: abnormal gait, alert Additional comments: lt wkness, speech difficulty - Psychiatric Psychiatric exam: Present: normal mood - Skin Additional comments: bruising in the ext inspected Oncology Inpatient Results CT head CT abd no ac findings, possible cystitis Consult Discharge Plan - Plan Referrals: Prema Raines CNP [Primary Care Provider] - Inpatient Charges Provider: Dr. Blanca Manriquez Follow up - Inpatient: [id number] Consult - Observation: [id number]
[2018-11-30 13:18] LABS: Folate 9.4 ng/mL (3.0-16.0)
[2018-12-01 03:54] LABS: Hematocrit 33.4 % (37.5-50.1); Hemoglobin 10.7 g/dL (12.9-16.9); Mean Corpuscular Hemoglobin 29.3 pg (28.0-33.3); Mean Corpuscular Volume 91.5 fL (83.0-100.0); Mean Platelet Volume 12.2 fL (9.4-12.4); Red Blood Count 3.65 M/mcL (4.19-5.50); Red Cell Distribution Width 13.5 % (11.5-14.5)
[2018-12-01 03:56] LABS: Platelet Count 52 K/mcL (140-400)
[2018-12-01 04:17] LABS: Calcium 9.1 mg/dL (8.6-10.3); Potassium 3.9 mEq/L (3.5-5.1)
[2018-12-01 07:32] VITALS: BP 126/68
--- NOTE | 2018-12-01 08:50 | Discharge Summary ---
- NOTES TO OUTPATIENT PROVIDER Notes to Outpatient Provider: f/u with oncology within 2 weeks. f/u with PCP within one week. Orders not resulted at time of discharge: Pending orders 11/29/18 19:18 ECG 12 lead ECG [ECG] Stat 11/30/18 06:00 ECG 12 lead ECG [ECG] AM 0600 11/30/18 12:03 MMA (VIT B12 STATUS) Routine Date of Encounter: 12/01/18 Time of Encounter: 08:48 - Discharge Diagnosis (1) Thrombocytopenia Priority: Secondary Status: Chronic (2) Frequent falls Priority: Primary Status: Acute (3) CAD (coronary artery disease) Priority: Secondary Status: Chronic Qualifiers: Coronary Disease-Associated Artery/Lesion type: [place] artery [place] vs. transplanted heart: [place] heart Associated angina: without angina Qualified Code(s): I25.10 - Atherosclerotic heart disease of [place] coronary artery without angina pectoris (4) DVT prophylaxis Priority: Primary Status: Acute (5) Altered mental status Priority: Primary Status: Ruled-out Qualifiers: Altered mental status type: unspecified Qualified Code(s): R41.82 - Altered mental status, unspecified Hospital course: Mr. Lau is an 83 year old male who presents with history of increased falling lately, bruising to his chest and abdomen, and increasing episodes of forgetfulness. Workup in ER revealed patient to be thrombocytopenic. This prompted imaging of his head which was negative. He also had CT of abdomen and pelvis which suggested possible cystitis. Otherwise, imaging findings were negative. Because of his falling risk and thrombocytopenia, patient was admitted to hospitalist service. Of note, there were verbal reports by family stating he had blood work done by his PCP a few days ago with platelet count of 10,000. While in the ED, patient is completely alert and oriented 3. 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 He has no altered mental status. However, his states he has been having bouts of increased forgetfulness over the last 3-4 weeks. He has no history of dementia, but she is concerned he might be developing demen tia. He has had no head trauma whatsoever. He did fall in the bathtub yesterday and today sustaining injury to his left rib cage and right abdomen area. On physical exam, skin ecchymosis was noted on the left abdomen and flank. CT head was negative for bleeding or fracture. CT abdomen was unremarkable. Hematology was consulted, several tests were ordered. While in the hospital, patient vital signs were stable, platelet was stable, no active bleeding. PT/OT was consulted, however, patient stated that he will not go to rehabilitation facility/ECF even if the PT/OT recommended. After dis cussed with patient, , and another family member, we will discharge patient today, we will resume his home health care. He will follow up with oncology within 2 weeks. Discharge discussed with: patient Time spent discussing smoking cessation with patient: more than 10 minutes - Time Spent with Patient Total time spent providing and/or coordinating discharge services: Time spent: Greater than 30 minutes - Discharge Medications Prescriptions: Continue Amlodipine Besylate 10 mg PO DAILY Albuterol Sulfate [Proair Hfa] 2 puff IH PRN PRN PRN Reason: Shortness Of Breath Nitroglycerin [Nitrostat] 0.4 mg SL PRN PRN PRN Reason: Chest Pain Carbidopa/Levodopa 25/100 [Sinemet 25/100] 1 each PO TID Metoprolol Succinate 50 mg PO DAILY Tizanidine HCl [Zanaflex] 4 mg PO DAILY Atorvastatin Calcium [Lipitor] 20 mg PO DAILY Levothyroxine [Synthroid] 25 mcg PO DAILY Multivitamin [One Daily Essential] 1 each PO DAILY Cholecalciferol (Vitamin D3) [Vitamin D3] 10,000 unit PO QWEEK Alendronate Sodium [Fosamax] 70 mg PO TH Gabapentin [Neurontin] 300 mg PO HS Oxycodone HCl/Acetaminophen [Percocet 5-325 mg Tablet] 1 each PO HS Home Medications: Albuterol Sulfate [Proair Hfa] 2 puff IH PRN PRN 08/02/16 [History] Amlodipine Besylate 10 mg PO DAILY 08/02/16 [History] Carbidopa/Levodopa 25/100 [Sinemet 25/100] 1 each PO TID 08/02/16 [History] Metoprolol Succinate 50 mg PO DAILY 08/02/16 [History] Nitroglycerin [Nitrostat] 0.4 mg SL PRN PRN 08/02/16 [History] Alendronate Sodium [Fosamax] 70 mg PO TH 06/19/17 [History] Atorvastatin Calcium [Lipitor] 20 mg PO DAILY 06/19/17 [History] Cholecalciferol (Vitamin D3) [Vitamin D3] 10,000 unit PO QWEEK 06/19/17 [History] Levothyroxine [Synthroid] 25 mcg PO DAILY 06/19/17 [History] Multivitamin [One Daily Essential] 1 each PO DAILY 06/19/17 [History] Tizanidine HCl [Zanaflex] 4 mg PO DAILY 06/19/17 [History] Gabapentin [Neurontin] 300 mg PO HS 09/02/18 [History] Oxycodone HCl/Acetaminophen [Percocet 5-325 mg Tablet] 1 each PO HS 09/02/18 [History] Allergies/Adverse Reactions: Allergy/AdvReac Type Severity Reaction Status Date / Time No Known Allergies Allergy Verified 11/29/18 20:56 Date of admission: 11/29/18 21:25 Primary care physician: Prema Raines Consults: 11/29/18 23:31 Consult to Oncology Hematology [CONS] Routine Consulting Provider: Mavis Manriquez Reason for Consult: thrombocytopenia; falls Call Completed: No Anticipated date of discharge: 12/01/18 - Constitutional Vitals: Temp Pulse Resp BP Pulse Ox 98.5 F 82 17 126/68 95 12/01/18 07:31 12/01/18 07:31 12/01/18 07:31 12/01/18 07:31 12/01/18 07:31 General appearance: Present: cooperative, A&O X 3, pleasant, answers questions appropriately Exam: PHYSICAL EXAMINATION: GENERAL APPEARANCE: The patient is alert, oriented and in no acute distress. HEENT: Head is normocephalic. The sinuses are nontender. Pupils are equal and reactive. The nares are patent. Oropharynx clear without lesions. NECK: Supple without lymphadenopathy. HEART: Regular rate and rhythm. LUNGS: No crackles or wheezes are heard. ABDOMEN: Soft, nontender, nondistended with good bowel sounds heard. Inguinal area is normal. EXTREMITIES: Without cyanosis, clubbing or edema. NEUROLOGICAL: Gross nonfocal. SKIN: Warm and dry without any rash. - Patient Status Disposition: Home Health Service Condition: Fair Functional capacity at discharge: wheelchair bound Overall status at discharge: patient is progressing back to baseline - Discharge Instructions Follow Up With: Prema Raines CNP [Primary Care Provider] - 12/03/18 12:45 pm - Diet and Activity Activity: increase activity as tolerated Diet: low fat, low cholesterol, low salt diet
--- NOTE | 2018-12-01 09:21 | Physician Discharge Referral ---
Home Health/Hosp Referral Info Transfer to: Home Health Provider in Charge Post Discharge: PCP - Diagnosis (1) Thrombocytopenia Priority: Secondary Status: Chronic (2) Frequent falls Priority: Primary Status: Acute (3) CAD (coronary artery disease) Priority: Secondary Status: Chronic (4) DVT prophylaxis Priority: Primary Status: Acute (5) Altered mental status Priority: Primary Status: Ruled-out - Respiratory Orders Smoking Cessation: Smoking cessation has been advised. For more information, call the [place] Tobacco Quit Line at 2-032-QCPO-NOW. - Services Needed Following services are medically necessary services: Nursing, Home Health Aide, Physical Therapy, Occupational Therapy - Transfer Medications Home Medications: Albuterol Sulfate [Proair Hfa] 2 puff IH PRN PRN 08/02/16 [History] Amlodipine Besylate 10 mg PO DAILY 08/02/16 [History] Carbidopa/Levodopa 25/100 [Sinemet 25/100] 1 each PO TID 08/02/16 [History] Metoprolol Succinate 50 mg PO DAILY 08/02/16 [History] Nitroglycerin [Nitrostat] 0.4 mg SL PRN PRN 08/02/16 [History] Alendronate Sodium [Fosamax] 70 mg PO TH 06/19/17 [History] Atorvastatin Calcium [Lipitor] 20 mg PO DAILY 06/19/17 [History] Cholecalciferol (Vitamin D3) [Vitamin D3] 10,000 unit PO QWEEK 06/19/17 [History] Levothyroxine [Synthroid] 25 mcg PO DAILY 06/19/17 [History] Multivitamin [One Daily Essential] 1 each PO DAILY 06/19/17 [History] Tizanidine HCl [Zanaflex] 4 mg PO DAILY 06/19/17 [History] Gabapentin [Neurontin] 300 mg PO HS 09/02/18 [History] Oxycodone HCl/Acetaminophen [Percocet 5-325 mg Tablet] 1 each PO HS 09/02/18 [History] Allergies/Adverse Reactions: Allergy/AdvReac Type Severity Reaction Status Date / Time No Known Allergies Allergy Verified 11/29/18 20:56 Certification: Further, I certify that my clinical findings support that this patient is homebound (i.e. absences from home require considerable and taxing effort and are for medical reasons or [facility] or infrequently or short duration when for other reasons) because: Homebound Reason: Patient requires assistance of a person or device to safely leave home Attestation: My signature below is to certify that this patient is under my care and that I, or nurse practitioner, or a physician's bookkeeping assistant working with me, has a [id number] encounter with this patient.
--- NOTE | 2018-12-01 12:36 | Internal Med Progress Note ---
Hospitalist Progress Note - Encounter Date of Encounter: 12/01/18 Time of Encounter: 12:35 - Subjective Interval History: Pt seen and examined in the room. Pt has no bleeding or hematoma. No fall overnight. - Exam Vitals: Temp Pulse Resp BP Pulse Ox 98.5 F 82 17 126/68 95 12/01/18 07:31 12/01/18 07:31 12/01/18 07:31 12/01/18 07:31 12/01/18 07:31 Exam: PHYSICAL EXAMINATION: GENERAL APPEARANCE: The patient is alert, oriented and in no acute distress. HEENT: Head is normocephalic. The sinuses are nontender. Pupils are equal and reactive. The nares are patent. Oropharynx clear without lesions. NECK: Supple without lymphadenopathy. HEART: Regular rate and rhythm. LUNGS: No crackles or wheezes are heard. ABDOMEN: Soft, nontender, nondistended with good bowel sounds heard. Inguinal area is normal. EXTREMITIES: Without cyanosis, clubbing or edema. NEUROLOGICAL: Gross nonfocal. SKIN: Warm and dry without any rash. - Assessment and Plan (1) Thrombocytopenia Status: Chronic Assessment and Plan: 1. Monitor platelet count. 2. Falls precautions. 3. Consult hematology for guidance, further work-up as necessary. (2) Frequent falls Status: Acute Assessment and Plan: 1. Will place in fall precautions. 2. Consult PT/OT. 3. Neurochecks ordered. (3) CAD (coronary artery disease) Status: Chronic Assessment and Plan: 1. No current symptoms. 2. Resume home meds as appropriate once verified. 3. Hold ASA/Plavix due to thrombocytopenia and falling. 4. Monitor on telemetry. (4) DVT prophylaxis Status: Acute Assessment and Plan: 1. EPCD's. (5) Altered mental status Status: Ruled-out Assessment and Plan: 1. Based upon history and exam, patient exhibits no sign of encephalopathy. 2. reports periods of chronic forgetfulness which may be a sign of dementia symptoms. 3. Monitor clinically. - Time Spent with Patient Total time spent is greater than 50% in coordination of care (as documented) at patient's floor/unit and/or counseling patient: Greater than 35 minutes Plan of Care Discussed with: patient Internal Medicine: Result - Labs CBC & Chem 7: 12/01/18 03:09 12/01/18 03:09 Labs: Short CBC 12/01/18 Range/Units 03:09 WBC 3.8 L (4.3-11.1) K/mcL Hgb 10.7 L (12.9-16.9) g/dL Hct 33.4 L (37.5-50.1) % Plt Count 52 L (140-400) K/mcL BMP 12/01/18 03:09 Sodium 141 Potassium 3.9 Chloride 108 H Carbon Dioxide 22 L BUN 16 Creatinine 1.55 H Glucose 98 Calcium 9.1 - ABG Interpretation ABG results: PT/INR, D-dimer PT 11.7 Seconds (9.4-12.1) 11/30/18 06:06 Consult Discharge Plan - Plan Instructions: Fall Prevention (DC) Additional Instructions: Follow-up appointments: If there is not an appointment listed below, please call your physician and schedule a follow-up appointment. If you have congestive heart failure and your symptoms return, make an appointment with your physician. Medication List: Carry an up to date list of medications you are taking at all time. We have given you an updated medication list including any new medications that you have been prescribed. Please provide that list to your primary provider Symptoms: If your condition changes or you experience any of the following symptoms, notify your physician immediately: Unusual or worsening pain, fever, persistent nausea and vomiting, bleeding, increase in swelling (especially in your legs), sudden weight gain, extreme dizziness, chest pain, increased drainage or redness from a wound or incision. Go to the emergency department if you experience a problem with breathing. Weights: If you have a history of swelling or shortness of breath, weigh yourself daily and notify your physician if you have a weight gain of two or more pounds in one day or 5 or more pounds in a week. If you experience any of the warning signs for stroke: Sudden numbness or weakness of the face, arm or leg; especially on one side of the body, sudden confusion, trouble speaking or understanding, sudden trouble seeing in one or both eyes, sudden trouble walking, dizziness, loss of balance or coordination, sudden sever headache with no cause; Call 911 or go to the emergency room. Stroke is a medical emergency. Some risk factors for stroke: Age, cigarette smoking, diabetes, excessive alcohol consumption, family history, high blood pressure, overweight, physical inactivity, prior stroke, heart attack, diagnosis of carotid artery stenosis or other artery disease. If you smoke, STOP: Smoking or tobacco use significantly increases your risk of heart and lung disease. Your chance of disease greatly increases if you continue to smoke. For more information, call the [place] tobacco quit line for smoking cessation NOW ( ) Referrals: Prema Raines CNP [Primary Care Provider] - 12/03/18 12:45 pm (3) CAD (coronary artery disease) Qualifiers: Coronary Disease-Associated Artery/Lesion type: [place] artery [place] vs. tra nsplanted heart: [place] heart Associated angina: without angina Qualified Code(s): I25.10 - Atherosclerotic heart disease of [place] coronary artery without angina pectoris (5) Altered mental status Qualifiers: Altered mental status type: unspecified Qualified Code(s): R41.82 - Altered mental status, unspecified
--- NOTE | 2018-12-01 16:15 | Electrocardiograph Report ---
[place] [address] Test Date: 2018-11-29 Pat Name: Iban Lau Department: [id number] Room: 3B12 Gender: M Advanced Manufacturing Consultant: : 1935 Requested By: Allan Zamarripa Order Number: [id number] Reading MD: Hector Cam Measurements Intervals [place] Rate: 57 P: 50 ID: [id number] QRS: 69 QRSD: 167 T: 45 QT: 455 QTc: 443 Interpretive Statements Sinus rhythm Atrial premature complexes Right bundle branch block Electronically Signed On 12-01-2018 16:14:08 EDT by Hector Cam
--- NOTE | 2018-12-01 16:18 | Electrocardiograph Report ---
[address] [address] Test Date: 2018-11-30 Pat Name: Iban Lau Department: 113 Room: 3B12 Gender: M Corporate General Manager: : 1935 Requested By: Tyler Pickett Order Number: [id number] Reading MD: Hector Cam Measurements Intervals [place] Rate: 62 P: 43 GA: 167 QRS: 56 QRSD: 142 T: 51 QT: 417 QTc: 423 Interpretive Statements SINUS RHYTHM RIGHT BUNDLE BRANCH BLOCK Electronically Signed On 12-01-2018 16:16:36 EDT by Hector Cam
== END 2018-12-01 10:24 | disposition home health service (06) ==
LOC: EMEROOARM 18:58 → 3BNU 18:58
PROVIDERS: ADMIT Pediatrics; ATTEND Student in an Organized Health Care Education/Training Program

== ENCOUNTER 2019-03-21 02:19 | Observation (INO) ==
--- NOTE | 2019-03-21 02:53 | Emergency Department Note ---
Disposition Clinical Impression: HERRERA (acute kidney injury), Weakness, Thrombocytopenia Pneumonia Qualifiers: Pneumonia type: due to unspecified organism Laterality: left Lung location: lower lobe of lung Qualified Code(s): J18.1 - Lobar pneumonia, unspecified organism UTI (urinary tract infection) Qualifiers: Urinary tract infection type: acute cystitis Hematuria presence: without hematuria Qualified Code(s): N30.00 - Acute cystitis without hematuria Disposition: Admitted As Inpatient Condition: Good Referrals: Prema Raines [Primary Care Provider] - Forms: ED Satisfaction Letter Time of Disposition: 04:09 General Adult HPI - General Chief complaint: ED Fever Stated complaint: Fever, Weakness Time Seen by Provider: 03/21/19 02:30 Source: patient, family Limitations: no limitations Nursing Notes Reviewed: Yes Vital Signs Reviewed: Yes - History of Present Illness HPI Narrative: Male patient presenting to emergency department complaining of generalized weakness. He did have a bone marrow biopsy today of his sacrum secondary to having low platelets. 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 He is generally able to get up and move around and care for himself however the family states this evening he began to get weaker while they were there. States that he did try to get up to her to the bathroom and ended up falling back onto his bed. He did not fall to the floor he did not strike his head. He is not currently on any anticoagulants. Patient states that he just feels weak all over. States that they then called the squad who came out into the temporal temperature which was noted to be 102. He did not check the temperature orally or rectally. He was given a gram of Tylenol after this. Patient currently only complains of generalized weakness. He denies any shortness of breath or chest pain. Denies any difficulty urination or back pain. Pain Scale: 0 - Related Data Home Medications Medication Instructions Recorded Confirmed Albuterol Sulfate [Proair Hfa] 2 puff IH PRN PRN 08/02/16 03/21/19 Amlodipine Besylate 10 mg PO DAILY 08/02/16 03/21/19 Carbidopa/Levodopa 25/100 [Sinemet 1 each PO TID 08/02/16 03/21/19 25/100] Metoprolol Succinate 50 mg PO DAILY 08/02/16 03/21/19 Nitroglycerin [Nitrostat] 0.4 mg SL PRN PRN 08/02/16 03/21/19 Alendronate Sodium [Fosamax] 70 mg PO TH 06/19/17 03/21/19 Atorvastatin Calcium [Lipitor] 20 mg PO DAILY 06/19/17 03/21/19 Cholecalciferol (Vitamin D3) 10,000 unit PO QWEEK 06/19/17 03/21/19 [Vitamin D3] Levothyroxine [Synthroid] 25 mcg PO DAILY 06/19/17 03/21/19 Multivitamin [One Daily Essential] 1 each PO DAILY 06/19/17 03/21/19 Tizanidine HCl [Zanaflex] 4 mg PO DAILY 06/19/17 03/21/19 Gabapentin [Neurontin] 300 mg PO HS 09/02/18 03/21/19 Oxycodone HCl/Acetaminophen 1 each PO HS 09/02/18 03/21/19 [Percocet 5-325 mg Tablet] Allergies Allergy/AdvReac Type Severity Reaction Status Date / Time No Known Allergies Allergy Verified 03/21/19 02:25 All systems ED: reviewed and negative except as stated. Review of Systems: As Per HPI Constitutional: Reports: fever, weakness. Denies: chills ENT ED: Denies: congestion Cardiovascular: Denies: chest pain, palpitations, syncope Respiratory: Denies: cough, dyspnea, sputum production Gastrointestinal: Denies: abdominal pain, nausea, vomiting, diarrhea Genitourinary: Denies: urgency, dysuria, frequency, hematuria Musculoskeletal: Denies: back pain, neck pain Integumentary: Denies: rash Neurological: Reports: weakness. Denies: headache Past Medical History - Past Medical History Attestation: Yes The following information was validated with the patient. Source: patient Medical history: Reports: cancer, CHF, coronary artery disease, CVA, hyperlipidemia, hypertension, myocardial infarction Surgical history: Reports: angioplasty/stent, cholecystectomy Psychiatric history: Reports: no psych history - Social History Smoking Status: Former smoker Smokeless Tobacco Status: No Alcohol use: Reports: none Drug use: Reports: none Physical Exam - General Limitations: no limitations General appearance: alert, other (Does appear tired while I am talking to him. However mentating appropriately.) - Head Head exam: atraumatic, normocephalic, normal inspection - Eye Eye exam: Present: normal appearance, PERRL (Constricted but reactive.), EOMI - ENT ENT exam: normal exam, normal oropharynx, mucous membranes moist - Neck Neck exam: Present: normal inspection, full ROM, trachea midline - Chest Chest inspection: Present: normal inspection, symmetric chest wall rise. Absent: tenderness - Respiratory Respiratory exam: Present: normal lung sounds bilaterally. Absent: respiratory distress, accessory muscle use - Cardiovascular Cardiovascular exam: Present: regular rate, normal rhythm, normal heart sounds - Abdominal Exam Abdominal exam: Present: soft, Non-Tender. Absent: tenderness, distention, guarding, rebound, rigidity, organomegaly, Mendoza's sign, Rovsing's sign, tenderness at McBurney's Point - Extremities Exam Extremities exam: Present: normal inspection, full ROM, normal capillary refill. Absent: tenderness, pedal edema, calf tenderness - Back Exam Back exam: Present: normal inspection, full ROM. Absent: tenderness - Neurological Exam Neurological exam: Present: alert, oriented X3, other (Patient with gross motor intact in all 4 extremities. Left is weaker than the right. The only states that this is the baseline for the patient this is not increased from his baseline.) - Psychiatric Psychiatric exam: Present: normal affect, normal mood - Skin Skin exam: Present: warm, dry, intact, normal color. Absent: rash, cyanosis, diaphoresis Course Course Narrative: Patient appears tired while resting in bed. and grandson are at bedside reporting that the patient's decline started around 8 to 9:00 tonight. They state that his mentation is normal for him he just grossly appears weaker than normal. The patient has no complaints currently other than being weak. They report that he is not have a cough recently. There have been no rashes. He denies any urinary symptoms. He denies any chest pain shortness of breath or abdominal pain. He did have a biopsy of his sacrum today secondary to low platelets. We will get a plantar glucose and basic lab workup on patient as well as a chest x-ray and urinalysis. Not believe that the source of patient's weakness and fever is the bone marrow biopsy is the site is clean. There is no erythema. There is no discharge. The onset of the fever from the biopsy was a very short period of time. - Reevaluation(s) Reevaluation #1: Patient's head CT with chronic microvascular changes. X-ray concerning for left lower lobe pneumonia. He was febrile at home. Also has a new a KI on it see Ira picture. GFR is in the 40s were was normally in the mid 50s. Patient is not hypoxic. We did place patient on Doxy as well as Rocephin secondary to this pneumonia. Patient is mildly thrombocytopenic still. Generalized weakness. Not able to get up and ambulate as normal. We will admit patient to hospital at this time. Time: 03:58 Reevaluation #2: I discussed the x-ray findings and lab work with the patient and his family. The states that the patient does aspirate frequently whenever he is trying to swallow liquids. She states he has had a swallow study before but she has never been told that he needed thickened fluids. Time: 04:03 - Consultations Consultation #1: Dr Zamarripa accepted Pt in stable condition. Time: 04:10 Vital Signs Temperature 98.7 F 03/21/19 02:21 Pulse Rate 95 03/21/19 02:21 Respiratory Rate 16 03/21/19 02:21 Blood Pressure 111/63 03/21/19 02:21 O2 Sat by Pulse Oximetry 94 03/21/19 02:21 Temperature 98.7 F 03/21/19 02:21 Pulse Rate 72 03/21/19 03:00 Respiratory Rate 18 03/21/19 03:00 Blood Pressure 109/72 03/21/19 02:44 O2 Sat by Pulse Oximetry 95 03/21/19 03:00 Oxygen Delivery Oxygen Delivery Room Air Medical Decision Making - Medical Records Medical records reviewed: Yes I reviewed the patient's medical records. - Lab Data Lab results reviewed: Yes I reviewed the patient's lab results. Result diagrams: 03/21/19 03:09 03/21/19 03:09 Lab Results 03/21/19 03/21/19 03/21/19 Range/Units 02:59 03:09 03:09 WBC 5.6 (4.3-11.1) K/mcL RBC 3.82 L (4.19-5.50) M/mcL Hgb 11.2 L (12.9-16.9) g/dL Hct 35.2 L (37.5-50.1) % MCV 92.1 (83.0-100.0) fL MCH 29.3 (28.0-33.3) pg MCHC 31.8 (31.6-35.5) g/dL RDW 13.6 (11.5-14.5) % Plt Count 46 L (140-400) K/mcL MPV 12.4 (9.4-12.4) fL Seg Neutrophils % 62.0 % Band Neutrophils % 2.0 (0-4) % Lymphocytes % 16.0 % Monocytes % 16.0 % Metamyelocytes % 4.0 H (0) % Neutrophils # 3.6 (1.6-8.9) K/mcL Lymphocytes # 0.9 (0.6-4.6) K/mcL Monocytes # 0.9 (0.0-1.3) K/mcL Platelet Estimate Decreased L (Normal) Sodium 136 (136-145) mEq/L Potassium 4.4 (3.5-5.1) mEq/L Chloride 107 (98-107) mEq/L Carbon Dioxide 22 L (23-29) mEq/L BUN 23 (8-23) mg/dL Creatinine 1.88 H (0.70-1.30) mg/dL Est GFR ( Amer) 42 L (> 60) Est GFR (Non-Af Amer) 34 L (> 60) BUN/Creatinine Ratio 12 (6-26) Glucose 128 H (70-105) mg/dL POC Glucose 139 H (70-99) mg/dL Calculated Osmolality 287 (280-300) Lactic Acid (0.5-2.2) mmol/L Calcium 9.0 (8.6-10.3) mg/dL Total Bilirubin 0.6 (0.3-1.0) mg/dL Direct Bilirubin 0.1 (0.0-0.2) mg/dL Indirect Bilirubin 0.5 (0.0-1.2) mg/dL AST 16 (13-39) Units/L ALT 7 (7-52) Units/L Alkaline Phosphatase 57 (34-104) Units/L Troponin I < 0.03 (< 0.04) ng/mL Serum Total Protein 7.3 (6.4-8.9) g/dL Albumin 4.2 (3.5-5.7) g/dL Globulin 3.1 (2.4-3.5) g/dL Albumin/Globulin Ratio 1.4 (1.1-2.2) Urine Color (Yellow) Urine Clarity (Clear) Urine pH (5.0-8.0) pH Units Ur Specific Edson (1.010-1.025) Urine Protein (Neg-Trace) mg/dL Urine Glucose (UA) (Normal) mg/dL Urine Ketones (Negative) mg/dL Urine Blood (Negative) Urine Nitrite (Negative) Urine Bilirubin (Negative) Urine Urobilinogen (Normal) mg/dL Ur Leukocyte Esterase (Negative) Urine Microscopic RBC (0-3) per hpf Urine Microscopic WBC (0-3) per hpf Ur Squamous Epith Cells (None-Few) per lpf Urine Bacteria (None-Few) per hpf Hyaline Casts (None-Few) per lpf Ur Culture Indicated? (NO) 03/21/19 03/21/19 Range/Units 03:09 03:45 WBC (4.3-11.1) K/mcL RBC (4.19-5.50) M/mcL Hgb (12.9-16.9) g/dL Hct (37.5-50.1) % MCV (83.0-100.0) fL MCH (28.0-33.3) pg MCHC (31.6-35.5) g/dL RDW (11.5-14.5) % Plt Count (140-400) K/mcL MPV (9.4-12.4) fL Seg Neutrophils % % Band Neutrophils % (0-4) % Lymphocytes % % Monocytes % % Metamyelocytes % (0) % Neutrophils # (1.6-8.9) K/mcL Lymphocytes # (0.6-4.6) K/mcL Monocytes # (0.0-1.3) K/mcL Platelet Estimate (Normal) Sodium (136-145) mEq/L Potassium (3.5-5.1) mEq/L Chloride (98-107) mEq/L Carbon Dioxide (23-29) mEq/L BUN (8-23) mg/dL Creatinine (0.70-1.30) mg/dL Est GFR ( Amer) (> 60) Est GFR (Non-Af Amer) (> 60) BUN/Creatinine Ratio (6-26) Glucose (70-105) mg/dL POC Glucose (70-99) mg/dL Calculated Osmolality (280-300) Lactic Acid 1.8 (0.5-2.2) mmol/L Calcium (8.6-10.3) mg/dL Total Bilirubin (0.3-1.0) mg/dL Direct Bilirubin (0.0-0.2) mg/dL Indirect Bilirubin (0.0-1.2) mg/dL AST (13-39) Units/L ALT (7-52) Units/L Alkaline Phosphatase (34-104) Units/L Troponin I (< 0.04) ng/mL Serum Total Protein (6.4-8.9) g/dL Albumin (3.5-5.7) g/dL Globulin (2.4-3.5) g/dL Albumin/Globulin Ratio (1.1-2.2) Urine Color Yellow (Yellow) Urine Clarity Clear (Clear) Urine pH 5.5 (5.0-8.0) pH Units Ur Specific Edson 1.023 (1.010-1.025) Urine Protein 100 H (Neg-Trace) mg/dL Urine Glucose (UA) Normal (Normal) mg/dL Urine Ketones Trace H (Negative) mg/dL Urine Blood Small H (Negative) Urine Nitrite Negative (Negative) Urine Bilirubin Small H (Negative) Urine Urobilinogen Normal (Normal) mg/dL Ur Leukocyte Esterase Moderate H (Negative) Urine Microscopic RBC 15-30 H (0-3) per hpf Urine Microscopic WBC 15-30 H (0-3) per hpf Ur Squamous Epith Cells Many H (None-Few) per lpf Urine Bacteria Few (None-Few) per hpf Hyaline Casts Few (None-Few) per lpf Ur Culture Indicated? YES A (NO) - Radiology Data Radiology results reviewed: Yes I reviewed the patient's radiology results. Chest X-Ray 03/21/19 02:45 IMPRESSION: Hazy opacity left lower lung suspicious of pneumonia. Interstitial prominence the may be magnified by shallow inspiration but an element of the chronic changes is suspected. D/ / Trace Toussaint / Trace Toussaint Interpreting Provider: Trace Toussaint Head CT 03/21/19 02:45 IMPRESSION: No acute intracranial abnormality. Chronic microvascular ischemic changes. D/ / Jaydon Nava / Jaydon Nava Interpreting Provider: Jaydon Nava - EKG Data EKG #1 EKG attestation: Yes I reviewed and interpreted this EKG. EKG results narrative: Normal sinus rhythm at a rate of 74. [place] interval is 186. QRS duration is 147. QT is 382. QTC is 424. No signs of acute ischemia. Good R-wave progression. No signs of diabetes appear without it. There is a right bundle branch bladder. No significant change from previous EKG dated 11/30/2018.
[2019-03-21 03:26] LABS: Hematocrit 35.2 % (37.5-50.1); Hemoglobin 11.2 g/dL (12.9-16.9); Mean Corpuscular HGB Conc 31.8 g/dL (31.6-35.5); Mean Corpuscular Hemoglobin 29.3 pg (28.0-33.3); Mean Corpuscular Volume 92.1 fL (83.0-100.0); Mean Platelet Volume 12.4 fL (9.4-12.4); Red Blood Count 3.82 M/mcL (4.19-5.50); Red Cell Distribution Width 13.6 % (11.5-14.5); White Blood Count 5.6 K/mcL (4.3-11.1)
[2019-03-21 03:28] LABS: Platelet Count 46 K/mcL (140-400)
[2019-03-21 03:44] LABS: Lymphocytes # 0.9 K/mcL (0.6-4.6); Monocytes # 0.9 K/mcL (0.0-1.3); Neutrophils # 3.6 K/mcL (1.6-8.9); Platelet Estimate Decreased (Normal)
[2019-03-21 03:46] LABS: Blood Urea Nitrogen 23 mg/dL (8-23); Carbon Dioxide 22 mEq/L (23-29); Chloride 107 mEq/L (98-107); Potassium 4.4 mEq/L (3.5-5.1); Sodium 136 mEq/L (136-145)
[2019-03-21 03:47] LABS: Alanine Aminotransferase 7 Units/L (7-52); Albumin 4.2 g/dL (3.5-5.7); Albumin/Globulin Ratio 1.4 (1.1-2.2); Alkaline Phosphatase 57 Units/L (34-104); Aspartate Amino Transferase 16 Units/L (13-39); BUN/Creatinine Ratio 12 (6-26); Bilirubin,Direct 0.1 mg/dL (0.0-0.2); Bilirubin,Indirect 0.5 mg/dL (0.0-1.2); Bilirubin,Total 0.6 mg/dL (0.3-1.0); Globulin 3.1 g/dL (2.4-3.5); Glucose 128 mg/dL (70-105); Osmolality,Calculated 287 (280-300); Total Protein 7.3 g/dL (6.4-8.9); Troponin I < 0.03 ng/mL (< 0.04); eGFR For African Americans 42 (> 60); eGFR For Non-African Americans 34 (> 60)
[2019-03-21] MEDS ORDERED: 0.9 % Sodium Chloride 500 ML IVC STA (03:48)
[2019-03-21] MEDS ORDERED: cefTRIAXone 1,000 MG in 0.9 % Sodium Chloride Mini Bag 100 ML IVPB ONE (03:56)
[2019-03-21] MEDS ORDERED: Doxycycline 100 MG in 0.9 % Sodium Chloride Mini Bag 100 ML IVPB STA (03:56)
[2019-03-21 03:58] LABS: Bilirubin,Urine Small (Negative); Blood,Urine Small (Negative); Clarity,Urine Clear (Clear); Color,Urine Yellow (Yellow); Glucose,Urine (UA) Normal (Normal); Ketones,Urine Trace mg/dL (Negative); Leukocyte Esterase,Urine Moderate (Negative); Nitrite,Urine Negative (Negative); PH,Urine 5.5 pH Units (5.0-8.0); Protein,Urine 100 mg/dL (Neg-Trace); Specific Gravity,Urine 1.023 (1.010-1.025); Urobilinogen,Urine Normal (Normal)
[2019-03-21 04:00] LABS: Bacteria,Urine Few per hpf (None-Few); Hyaline Casts,Urine Few per lpf (None-Few); RBC,Urine 15-30 per hpf (0-3); Squamous Epithelial Cell,Urine Many per lpf (None-Few); WBC,Urine 15-30 per hpf (0-3)
--- NOTE | 2019-03-21 04:14 | Emergency Department Note ---
Disposition Clinical Impression: HERRERA (acute kidney injury), Weakness, Thrombocytopenia Pneumonia Qualifiers: Pneumonia type: due to unspecified organism Laterality: left Lung location: lower lobe of lung Qualified Code(s): J18.1 - Lobar pneumonia, unspecified organism Disposition: Admitted As Inpatient Referrals: Prema Raines [Primary Care Provider] - Forms: ED Satisfaction Letter Time of Disposition: 04:20 General Adult HPI - General Chief complaint: ED Fever Stated complaint: Fever, Weakness Time Seen by Provider: 03/21/19 02:30 Source: patient, family Limitations: no limitations - History of Present Illness Pain Scale: 0 - Related Data Home Medications Medication Instructions Recorded Confirmed Albuterol Sulfate [Proair Hfa] 2 puff IH PRN PRN 08/02/16 03/21/19 Amlodipine Besylate 10 mg PO DAILY 08/02/16 03/21/19 Carbidopa/Levodopa 25/100 [Sinemet 1 each PO TID 08/02/16 03/21/19 25/100] Metoprolol Succinate 50 mg PO DAILY 08/02/16 03/21/19 Nitroglycerin [Nitrostat] 0.4 mg SL PRN PRN 08/02/16 03/21/19 Alendronate Sodium [Fosamax] 70 mg PO TH 06/19/17 03/21/19 Atorvastatin Calcium [Lipitor] 20 mg PO DAILY 06/19/17 03/21/19 Cholecalciferol (Vitamin D3) 10,000 unit PO QWEEK 06/19/17 03/21/19 [Vitamin D3] Levothyroxine [Synthroid] 25 mcg PO DAILY 06/19/17 03/21/19 Multivitamin [One Daily Essential] 1 each PO DAILY 06/19/17 03/21/19 Tizanidine HCl [Zanaflex] 4 mg PO DAILY 06/19/17 03/21/19 Gabapentin [Neurontin] 300 mg PO HS 09/02/18 03/21/19 Oxycodone HCl/Acetaminophen 1 each PO HS 09/02/18 03/21/19 [Percocet 5-325 mg Tablet] Allergies Allergy/AdvReac Type Severity Reaction Status Date / Time No Known Allergies Allergy Verified 03/21/19 02:25 Constitutional: Reports: fever, weakness. Denies: chills ENT ED: Denies: congestion Cardiovascular: Denies: chest pain, palpitations, syncope Respiratory: Denies: cough, dyspnea, sputum production Gastrointestinal: Denies: abdominal pain, nausea, vomiting, diarrhea Genitourinary: Denies: urgency, dysuria, frequency, hematuria Musculoskeletal: Denies: back pain, neck pain Integumentary: Denies: rash Neurological: Reports: weakness. Denies: headache Past Medical History - Past Medical History Medical history: Reports: cancer, CHF, coronary artery disease, CVA, hyperlipidemia, hypertension, myocardial infarction Surgical history: Reports: angioplasty/stent, cholecystectomy Psychiatric history: Reports: no psych history - Social History Smoking Status: Former smoker Smokeless Tobacco Status: No Alcohol use: Reports: none Drug use: Reports: none Physical Exam - General Limitations: no limitations General appearance: alert, other (Does appear tired while I am talking to him. However mentating appropriately.) Course Vital Signs Temperature 98.7 F 03/21/19 02:21 Pulse Rate 95 03/21/19 02:21 Respiratory Rate 16 03/21/19 02:21 Blood Pressure 111/63 03/21/19 02:21 O2 Sat by Pulse Oximetry 94 03/21/19 02:21 Temperature 98.7 F 03/21/19 02:21 Pulse Rate 72 03/21/19 03:00 Respiratory Rate 18 03/21/19 03:00 Blood Pressure 109/72 03/21/19 02:44 O2 Sat by Pulse Oximetry 95 03/21/19 03:00 Oxygen Delivery Oxygen Delivery Room Air Medical Decision Making - Lab Data Result diagrams: 03/21/19 03:09 03/21/19 03:09 Lab Results 03/21/19 03/21/19 03/21/19 Range/Units 02:59 03:09 03:09 WBC 5.6 (4.3-11.1) K/mcL RBC 3.82 L (4.19-5.50) M/mcL Hgb 11.2 L (12.9-16.9) g/dL Hct 35.2 L (37.5-50.1) % MCV 92.1 (83.0-100.0) fL MCH 29.3 (28.0-33.3) pg MCHC 31.8 (31.6-35.5) g/dL RDW 13.6 (11.5-14.5) % Plt Count 46 L (140-400) K/mcL MPV 12.4 (9.4-12.4) fL Seg Neutrophils % 62.0 % Band Neutrophils % 2.0 (0-4) % Lymphocytes % 16.0 % Monocytes % 16.0 % Metamyelocytes % 4.0 H (0) % Neutrophils # 3.6 (1.6-8.9) K/mcL Lymphocytes # 0.9 (0.6-4.6) K/mcL Monocytes # 0.9 (0.0-1.3) K/mcL Platelet Estimate Decreased L (Normal) Sodium 136 (136-145) mEq/L Potassium 4.4 (3.5-5.1) mEq/L Chloride 107 (98-107) mEq/L Carbon Dioxide 22 L (23-29) mEq/L BUN 23 (8-23) mg/dL Creatinine 1.88 H (0.70-1.30) mg/dL Est GFR ( Amer) 42 L (> 60) Est GFR (Non-Af Amer) 34 L (> 60) BUN/Creatinine Ratio 12 (6-26) Glucose 128 H (70-105) mg/dL POC Glucose 139 H (70-99) mg/dL Calculated Osmolality 287 (280-300) Lactic Acid (0.5-2.2) mmol/L Calcium 9.0 (8.6-10.3) mg/dL Total Bilirubin 0.6 (0.3-1.0) mg/dL Direct Bilirubin 0.1 (0.0-0.2) mg/dL Indirect Bilirubin 0.5 (0.0-1.2) mg/dL AST 16 (13-39) Units/L ALT 7 (7-52) Units/L Alkaline Phosphatase 57 (34-104) Units/L Troponin I < 0.03 (< 0.04) ng/mL Serum Total Protein 7.3 (6.4-8.9) g/dL Albumin 4.2 (3.5-5.7) g/dL Globulin 3.1 (2.4-3.5) g/dL Albumin/Globulin Ratio 1.4 (1.1-2.2) Urine Color (Yellow) Urine Clarity (Clear) Urine pH (5.0-8.0) pH Units Ur Specific [place] (1.010-1.025) Urine Protein (Neg-Trace) mg/dL Urine Glucose (UA) (Normal) mg/dL Urine Ketones (Negative) mg/dL Urine Blood (Negative) Urine Nitrite (Negative) Urine Bilirubin (Negative) Urine Urobilinogen (Normal) mg/dL Ur Leukocyte Esterase (Negative) Urine Microscopic RBC (0-3) per hpf Urine Microscopic WBC (0-3) per hpf Ur Squamous Epith Cells (None-Few) per lpf Urine Bacteria (None-Few) per hpf Hyaline Casts (None-Few) per lpf Ur Culture Indicated? (NO) 03/21/19 03/21/19 Range/Units 03:09 03:45 WBC (4.3-11.1) K/mcL RBC (4.19-5.50) M/mcL Hgb (12.9-16.9) g/dL Hct (37.5-50.1) % MCV (83.0-100.0) fL MCH (28.0-33.3) pg MCHC (31.6-35.5) g/dL RDW (11.5-14.5) % Plt Count (140-400) K/mcL MPV (9.4-12.4) fL Seg Neutrophils % % Band Neutrophils % (0-4) % Lymphocytes % % Monocytes % % Metamyelocytes % (0) % Neutrophils # (1.6-8.9) K/mcL Lymphocytes # (0.6-4.6) K/mcL Monocytes # (0.0-1.3) K/mcL Platelet Estimate (Normal) Sodium (136-145) mEq/L Potassium (3.5-5.1) mEq/L Chloride (98-107) mEq/L Carbon Dioxide (23-29) mEq/L BUN (8-23) mg/dL Creatinine (0.70-1.30) mg/dL Est GFR ( Amer) (> 60) Est GFR (Non-Af Amer) (> 60) BUN/Creatinine Ratio (6-26) Glucose (70-105) mg/dL POC Glucose (70-99) mg/dL Calculated Osmolality (280-300) Lactic Acid 1.8 (0.5-2.2) mmol/L Calcium (8.6-10.3) mg/dL Total Bilirubin (0.3-1.0) mg/dL Direct Bilirubin (0.0-0.2) mg/dL Indirect Bilirubin (0.0-1.2) mg/dL AST (13-39) Units/L ALT (7-52) Units/L Alkaline Phosphatase (34-104) Units/L Troponin I (< 0.04) ng/mL Serum Total Protein (6.4-8.9) g/dL Albumin (3.5-5.7) g/dL Globulin (2.4-3.5) g/dL Albumin/Globulin Ratio (1.1-2.2) Urine Color Yellow (Yellow) Urine Clarity Clear (Clear) Urine pH 5.5 (5.0-8.0) pH Units Ur Specific [place] 1.023 (1.010-1.025) Urine Protein 100 H (Neg-Trace) mg/dL Urine Glucose (UA) Normal (Normal) mg/dL Urine Ketones Trace H (Negative) mg/dL Urine Blood Small H (Negative) Urine Nitrite Negative (Negative) Urine Bilirubin Small H (Negative) Urine Urobilinogen Normal (Normal) mg/dL Ur Leukocyte Esterase Moderate H (Negative) Urine Microscopic RBC 15-30 H (0-3) per hpf Urine Microscopic WBC 15-30 H (0-3) per hpf Ur Squamous Epith Cells Many H (None-Few) per lpf Urine Bacteria Few (None-Few) per hpf Hyaline Casts Few (None-Few) per lpf Ur Culture Indicated? YES A (NO) Attestation Statement - Attestation Attestation: I examined this patient and my medical decision-making was reviewed with the Resident Physician. I agree with the documented findings, disposition and treatment plan as described except to the extent set forth below. Patient to the ED with a chief complaint of generalized weakness and fever. Patient had a bone marrow biopsy done this morning. This evening he was so weak he could not stand up. They called EMS who checked his temperature noted to be febrile. On arrival here he is afebrile in no distress. Abdomen is soft and nontender. Lungs are diminished. Plan. The patient is an tenderness chest x- ray. UTI with 15-30 whites. Patient denies cough. states he has had trouble with aspiration in the past. Doxycycline and Rocephin given. Patient does not meet septic criteria.. EKG reviewed with the resident. Patient with infiltrate on chest x-ray. 15-30 whites on urine. Doxycycline and Rocephin ordered. We will admit to medicine.
[2019-03-21] MEDS ORDERED: Acetaminophen 325 MG TABLET PO PRN (08:22)
[2019-03-21] MEDS ORDERED: Naloxone 0.4 MG/ML INJ IVP PRN (08:22)
[2019-03-21] MEDS ORDERED: Nitroglycerin 0.4 MG TAB.SUBL SL PRN (08:50)
[2019-03-21] MEDS: Metoprolol XL (24 HR) Succ 25 MG TAB.ER.24H PO SCH (10:06)
[2019-03-21] MEDS: Multivit/Ca/Min/Fe/FA 1 TAB TABLET PO SCH (10:06)
[2019-03-21] MEDS: amLODIPine 5 MG TABLET PO SCH (10:06)
[2019-03-21] MEDS: Levothyroxine 25 MCG TABLET PO SCH (10:06)
[2019-03-21] MEDS: Carbidopa/Levodopa 25/100 TABLET PO SCH ×3 (10:06→21:45)
[2019-03-21] MEDS: tiZANidine 4 MG TABLET PO SCH (10:06)
--- NOTE | 2019-03-21 13:16 | Internal Med History&Physical ---
Date of Encounter: 03/21/19 Time of Encounter: 09:15 Internal Medicine - H&P: HPI Chief complaint: Generalized weakness, fever Admitted From: Emergency Dept Plans for Post Hospital Care: Home History of present illness: Mr. Lau is a 84 year old male patient with history of Parkinson's disease, hypertension who was brought into the ER due to complaints of worsening generalized weakness yesterday along with fever with a temperature of 102 per ED records. Patient has not had any fever here but he did receive a gram of Tylenol before coming in. He denies any chest pain. No shortness of breath. Yesterday he was not able to get up much but this morning he feels much better and is able to sit up in bed. Denies any abdominal pain. No nausea or vomiting. No denies any dysuria. No hematuria. No cough. No sputum production. No recent hospitalizations. Patient is being worked up for thrombocytopenia and underwent bone marrow biopsy yesterday. Past Med Surg Social Fam HX - Past Medical History Medical history: cancer, CHF, coronary artery disease, CVA, hyperlipidemia, hypertension, myocardial infarction Additional medical history: skin cancer Psychiatric history: no psych history - Past Surgical History Surgical History: angioplasty/stent, cholecystectomy Additional surgical history: cardiac stents x 2e. bone marrow biopsy 03/10/2019 - Social History Smoking Status: Former smoker Smokeless Tobacco Status: No Alcohol use: none Drug use: none - Family History Mother Living Status: Hx Family Neuromuscular Disorders: No Hx Family Neurologic Disorders: No Father Living Status: Hx Family Neurologic Disorders: No Internal Medicine - H&P: Meds Albuterol Sulfate [Proair Hfa] 2 puff IH PRN PRN 08/02/16 [History] Amlodipine Besylate 10 mg PO DAILY 08/02/16 [History] Carbidopa/Levodopa 25/100 [Sinemet 25/100] 1 each PO TID 08/02/16 [History] Metoprolol Succinate 50 mg PO DAILY 08/02/16 [History] Nitroglycerin [Nitrostat] 0.4 mg SL PRN PRN 08/02/16 [History] Alendronate Sodium [Fosamax] 70 mg PO TH 06/19/17 [History] Atorvastatin Calcium [Lipitor] 20 mg PO DAILY 06/19/17 [History] Cholecalciferol (Vitamin D3) [Vitamin D3] 10,000 unit PO QWEEK 06/19/17 [History] Levothyroxine [Synthroid] 25 mcg PO DAILY 06/19/17 [History] Multivitamin [One Daily Essential] 1 each PO DAILY 06/19/17 [History] Tizanidine HCl [Zanaflex] 4 mg PO DAILY 06/19/17 [History] Gabapentin [Neurontin] 300 mg PO HS 09/02/18 [History] Oxycodone HCl/Acetaminophen [Percocet 5-325 mg Tablet] 1 each PO HS 09/02/18 [History] Allergy/AdvReac Type Severity Reaction Status Date / Time No Known Allergies Allergy Verified 03/21/19 02:25 All Systems PM: A 10-system review of systems was performed and is negative for pertinent findings except as documented above in the HPI. - Constitutional Constitutional: fever(s), lethargy, weakness, no chills, no night sweats - EENT Eyes: no change in vision, no discharge, no pain, no photophobia Ears: no ear discharge, no ear pain, no tinnitus Nose, mouth and throat: no dysphagia, no nasal discharge, no neck pain, no sore throat - Cardiovascular Cardiovascular ROS IM: no chest pain, no diaphoresis, no dyspnea, no lightheadedness, no palpitations, no syncope - Respiratory Respiratory: no cough, no dyspnea, no wheezing, no excessive phlegm production - Gastrointestinal Gastrointestinal: no abdominal pain, no diarrhea, no hematemesis, no hematochezia, no melena, no nausea, no vomiting - Musculoskeletal Musculoskeletal ROS IM: no numbness, no tingling - Integumentary Integumentary IM: no rash, no unusual bruising - Neurological Neurological ROS: no confusion, no convulsions, no focal weakness, no numbness, no tingling, no tremor(s) - Hematologic/Lymphatic Hematologic/Lymphatic: no easy bruising - Constitutional Vitals: Temp Pulse Resp BP Pulse Ox 98.6 F 69 19 116/68 96 03/21/19 12:03 03/21/19 12:03 03/21/19 12:03 03/21/19 12:03 03/21/19 12:03 Exam: General: Patient is alert, no acute distress, oriented x 3 Head: atraumatic, normocephalic, ENT: Mucous membranes moist Eye: normal appearance, PERRL, no scleral icterus, no conjunctival injection Neck: normal inspection, trachea midline, full ROM, no carotid bruits Chest: normal inspection, symmetric chest rise Respiratory: Good respiratory effort. Normal breath sounds. No wheezing or crackles. Cardiovascular: Regular rate and rhythm. s1 and s2 normal No clicks, rubs, gallops, or murmurs. No pedal edema Abdomen: Abdomen is soft, nontender. Bowel sounds are present Musculoskeletal: Spontaneously moving all extremities Skin: warm, dry, intact. Neuro: Alert oriented x 3 normal cranial nerves, no focal deficits, no significant resting tremor Psych: Patient's affect is normal Internal Med - H&P Results - Labs CBC & Chem 7: 03/21/19 03:09 03/21/19 03:09 Labs: Short CBC 03/21/19 Range/Units 03:09 WBC 5.6 (4.3-11.1) K/mcL Hgb 11.2 L (12.9-16.9) g/dL Hct 35.2 L (37.5-50.1) % Plt Count 46 L (140-400) K/mcL Neutrophils # 3.6 (1.6-8.9) K/mcL BMP 03/21/19 03:09 Sodium 136 Potassium 4.4 Chloride 107 Carbon Dioxide 22 L BUN 23 Creatinine 1.88 H Glucose 128 H Calcium 9.0 Cardiac Enzymes 03/21/19 Range/Units 03:09 Troponin I < 0.03 (< 0.04) ng/mL Liver Function 03/21/19 Range/Units 03:09 Total Bilirubin 0.6 (0.3-1.0) mg/dL Direct Bilirubin 0.1 (0.0-0.2) mg/dL AST 16 (13-39) Units/L ALT 7 (7-52) Units/L Alkaline Phosphatase 57 (34-104) Units/L Albumin 4.2 (3.5-5.7) g/dL Urine 03/21/19 Range/Units 03:45 Urine Color Yellow (Yellow) Urine Clarity Clear (Clear) Urine pH 5.5 (5.0-8.0) pH Units Ur Specific [place] 1.023 (1.010-1.025) Urine Protein 100 H (Neg-Trace) mg/dL Urine Glucose (UA) Normal (Normal) mg/dL - Impressions ITS Impressions Chest X-Ray 03/21/19 02:45 IMPRESSION: Hazy opacity left lower lung suspicious of pneumonia. Interstitial prominence the may be magnified by shallow inspiration but an element of the chronic changes is suspected. D/ / Trace Toussaint / Trace Toussaint Interpreting Provider: Trace Toussaint Head CT 03/21/19 02:45 IMPRESSION: No acute intracranial abnormality. Chronic microvascular ischemic changes. D/ / Jaydon Nava / Jaydon Nava Interpreting Provider: Jaydon Nava - Assessment and Plan (1) UTI (urinary tract infection) Current Visit: Yes Status: Acute Qualifiers: Urinary tract infection type: acute cystitis Hematuria presence: without hematuria Qualified Code(s): N30.00 - Acute cystitis without hematuria (2) HERRERA (acute kidney injury) Current Visit: Yes Status: Acute (3) Chronic kidney disease, stage 3 Current Visit: Yes Status: Acute (4) Pneumonia Current Visit: Yes Status: Suspected Qualifiers: Pneumonia type: due to unspecified organism Laterality: left Lung location: lower lobe of lung Qualified Code(s): J18.1 - Lobar pneumonia, unspecified organism (5) Thrombocytopenia Current Visit: Yes Status: Chronic (6) CAD (coronary artery disease) Current Visit: No Status: Chronic Qualifiers: Coronary Disease-Associated Artery/Lesion type: [place] artery [place] vs. transplanted heart: [place] heart Associated angina: without angina Qualified Code(s): I25.10 - Atherosclerotic heart disease of [place] coronary artery without angina pectoris - Summary of Assessment and Plan Summary of Assessment and Plan: Acute cystitis without hematuria: Urinalysis suggests possible urinary tract infection. Will follow urine cultures. Continue ceftriaxone. Possible pneumonia: Initial chest x-ray showed suggested possible left lower lobe infiltrate. However it was a poor inspiratory film. Patient has only mildly elevated pro calcitonin. Will repeat chest x-ray. If this does not show any infiltrate, pneumonia would be ruled out. Acute kidney injury on chronic kidney disease stage III: Patient has mild elevation in creatinine above baseline. Will monitor renal function. He did receive IV fluids in the ER. Essential hypertension: Blood pressure is well controlled. Continue home medications. Parkinson's disease: Continue Sinemet. DVT prophylaxis with subcutaneous heparin Moderate risk for complications. - Time Spent With Patient Total time spent is greater than 50% in coordination of care (as documented) at patient's floor/unit and/or counseling patient:
[2019-03-21] MEDS: *HR* Heparin 5,000 UNIT/ML VIAL SQ SCH (17:17)
[2019-03-21] MEDS ORDERED: Gabapentin 300 MG CAPSULE PO SCH (21:00)
[2019-03-21] MEDS ORDERED: *HR* OxyCODONE/APAP 5/325 TABLET PO SCH (21:00)
[2019-03-22 02:51] LABS: Basophils % 0.2 %; Hemoglobin 10.4 g/dL (12.9-16.9); Red Cell Distribution Width 13.9 % (11.5-14.5)
[2019-03-22 02:53] LABS: Eosinophils % 0.2 %; Hematocrit 32.5 % (37.5-50.1); Immature Platelets 12.5 % (1.1-6.1); Lymphocytes # 1.3 K/mcL (0.6-4.6); Lymphocytes % 23.9 %; Mean Corpuscular Hemoglobin 30.1 pg (28.0-33.3); Mean Corpuscular Volume 94.2 fL (83.0-100.0); Mean Platelet Volume 12.3 fL (9.4-12.4); Monocytes # 1.6 K/mcL (0.0-1.3); Monocytes % 28.8 %; Neutrophils # 2.5 K/mcL (1.6-8.9); Red Blood Count 3.45 M/mcL (4.19-5.50); Segmented Neutrophils % 44.9 %; White Blood Count 5.5 K/mcL (4.3-11.1)
[2019-03-22 02:54] LABS: Platelet Count 34 K/mcL (140-400)
[2019-03-22 03:10] LABS: Calcium 8.7 mg/dL (8.6-10.3); Potassium 4.1 mEq/L (3.5-5.1)
[2019-03-22 03:24] LABS: Platelet Estimate Decreased (Normal)
[2019-03-22] MEDS: *HR* Heparin 5,000 UNIT/ML VIAL SQ SCH (05:04)
[2019-03-22] MEDS: Multivit/Ca/Min/Fe/FA 1 TAB TABLET PO SCH (07:19)
[2019-03-22] MEDS: Carbidopa/Levodopa 25/100 TABLET PO SCH ×2 (07:19→13:52)
[2019-03-22] MEDS: amLODIPine 5 MG TABLET PO SCH (07:19)
[2019-03-22] MEDS: Levothyroxine 25 MCG TABLET PO SCH (07:19)
[2019-03-22] MEDS: Metoprolol XL (24 HR) Succ 25 MG TAB.ER.24H PO SCH (07:20)
[2019-03-22] MEDS: tiZANidine 4 MG TABLET PO SCH (07:20)
[2019-03-22] MEDS ORDERED: cefTRIAXone 1,000 MG in Water for inj. (sterile) 10 ML IVP SCH (09:00)
[2019-03-22] MEDS ORDERED: Ringers Solution, Lactated 1,000 ML IVC SCH ×2 (09:30→11:14)
--- NOTE | 2019-03-22 11:46 | Electrocardiograph Report ---
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
[2019-03-22 16:09] VITALS: BP 154/67
[2019-03-22 16:43] LABS: Potassium 4.4 mEq/L (3.5-5.1)
--- NOTE | 2019-03-22 16:53 | Discharge Summary ---
- NOTES TO OUTPATIENT PROVIDER Notes to Outpatient Provider: Patient with a history of Parkinson's disease and hypertension who was being worked up for thrombocytopenia was hospitalized here after presenting with generalized weakness and fevers. He was initially suspected of having a pneumonia based on chest x-ray that was done in the ER. However repeat chest x-ray done after admission did not show any infiltrate. His pro calcitonin level was also only mildly elevated. He did have signs of possible urinary tract infection but his urine cultures also did not growing bacteria. Patient did undergo bone marrow biopsy on the day he began to develop these symptoms. Could be related to that procedure. He also appeared to have atelectasis on his chest x-ray. She did receive IV fluids as he had mild acute kidney injury. His renal function has improved now. Patient is doing much better and wishes to go home. He will be discharged home today. He does not require any further antibiotics. Will follow-up with hematology for further evaluation of his thrombocytopenia. Orders not resulted at time of discharge: Pending orders 03/21/19 04:17 Culture,Blood [BC] Stat 03/21/19 08:22 Legionella Antigen [RM] Routine S. Pneumoniae Antigen [RM] Routine Date of Encounter: 03/22/19 Time of Encounter: 16:45 - Discharge Diagnosis (1) HERRERA (acute kidney injury) Priority: Primary Status: Acute (2) UTI (urinary tract infection) Priority: Secondary Status: Ruled-out Qualifiers: Urinary tract infection type: acute cystitis Hematuria presence: without hematuria Qualified Code(s): N30.00 - Acute cystitis without hematuria (3) Chronic kidney disease, stage 3 Priority: Secondary Status: Chronic (4) Pneumonia Priority: Secondary Status: Ruled-out Qualifiers: Pneumonia type: due to unspecified organism Laterality: left Lung location: lower lobe of lung Qualified Code(s): J18.1 - Lobar pneumonia, unspecified organism (5) Thrombocytopenia Priority: Secondary Status: Chronic (6) CAD (coronary artery disease) Priority: Secondary Status: Chronic Qualifiers: Coronary Disease-Associated Artery/Lesion type: [place] artery [place] vs. transplanted heart: [place] heart Associated angina: without angina Qualified Code(s): I25.10 - Atherosclerotic heart disease of [place] coronary artery without angina pectoris Hospital course: Mr. Lau is a 84 year old male Patient with a history of Parkinson's disease and hypertension who was being worked up for thrombocytopenia was hospitalized here after presenting with generalized weakness and fevers. He was initially suspected of having a pneumonia based on chest x-ray that was done in the ER. However repeat chest x-ray done after admission did not show any infiltrate. His pro calcitonin level was also only mildly elevated. He did have signs of possible urinary tract infection but his urine cultures also did not growing bacteria. Patient did undergo bone marrow biopsy on the day he began to develop these symptoms. Could be related to that procedure. He also appeared to have atelectasis on his chest x-ray. She did receive IV fluids as he had mild acute kidney injury. His renal function has improved now. Patient is doing much better and wishes to go home. He will be discharged home today. He does not require any further antibiotics. Will follow-up with hematology for further evaluation of his thrombocytopenia. Discharge discussed with: patient - Time Spent with Patient Total time spent providing and/or coordinating discharge services: Time spent: Less than 30 minutes (25 min) - Discharge Medications Prescriptions: Continued Amlodipine Besylate 10 mg PO DAILY Albuterol Sulfate [Proair Hfa] 2 puff IH PRN PRN PRN Reason: Shortness Of Breath Nitroglycerin [Nitrostat] 0.4 mg SL PRN PRN PRN Reason: Chest Pain Carbidopa/Levodopa 25/100 [Sinemet 25/100] 1 each PO TID Metoprolol Succinate 50 mg PO DAILY Tizanidine HCl [Zanaflex] 4 mg PO DAILY Atorvastatin Calcium [Lipitor] 20 mg PO DAILY Levothyroxine [Synthroid] 25 mcg PO DAILY Multivitamin [One Daily Essential] 1 each PO DAILY Cholecalciferol (Vitamin D3) [Vitamin D3] 10,000 unit PO QWEEK Alendronate Sodium [Fosamax] 70 mg PO TH Gabapentin [Neurontin] 300 mg PO HS Oxycodone HCl/Acetaminophen [Percocet 5-325 mg Tablet] 1 each PO HS Home Medications: Albuterol Sulfate [Proair Hfa] 2 puff IH PRN PRN 08/02/16 [History] Amlodipine Besylate 10 mg PO DAILY 08/02/16 [History] Carbidopa/Levodopa 25/100 [Sinemet 25/100] 1 each PO TID 08/02/16 [History] Metoprolol Succinate 50 mg PO DAILY 08/02/16 [History] Nitroglycerin [Nitrostat] 0.4 mg SL PRN PRN 08/02/16 [History] Alendronate Sodium [Fosamax] 70 mg PO TH 06/19/17 [History] Atorvastatin Calcium [Lipitor] 20 mg PO DAILY 06/19/17 [History] Cholecalciferol (Vitamin D3) [Vitamin D3] 10,000 unit PO QWEEK 06/19/17 [History] Levothyroxine [Synthroid] 25 mcg PO DAILY 06/19/17 [History] Multivitamin [One Daily Essential] 1 each PO DAILY 06/19/17 [History] Tizanidine HCl [Zanaflex] 4 mg PO DAILY 06/19/17 [History] Gabapentin [Neurontin] 300 mg PO HS 09/02/18 [History] Oxycodone HCl/Acetaminophen [Percocet 5-325 mg Tablet] 1 each PO HS 09/02/18 [History] Allergies/Adverse Reactions: Allergy/AdvReac Type Severity Reaction Status Date / Time No Known Allergies Allergy Verified 03/21/19 02:25 Date of admission: 03/21/19 04:16 Primary care physician: Prema Raines Discharging clinician: Keegan Stewart Anticipated date of discharge: 03/22/19 - Constitutional Vitals: Temp Pulse Resp BP Pulse Ox 98.4 F 57 20 154/67 95 03/22/19 16:04 03/22/19 16:04 03/22/19 16:04 03/22/19 16:04 03/22/19 16:04 Exam: General: Patient is alert, no acute distress, oriented x 3 Respiratory: Good respiratory effort. Normal breath sounds. No wheezing or crackles. Cardiovascular: Regular rate and rhythm. s1 and s2 normal No clicks, rubs, gallops, or murmurs. No pedal edema Abdomen: Abdomen is soft, nontender. Bowel sounds are present Musculoskeletal: Spontaneously moving all extremities Skin: warm, dry, intact. Neuro: Alert oriented x 3 normal cranial nerves, no focal deficits - Patient Status Disposition: Home, Self-Care Condition: Good Functional capacity at discharge: independent ambulation Overall status at discharge: patient is progressing back to baseline - Discharge Instructions Follow Up With: Prema Raines [Primary Care Provider] - (in 1 week) - Diet and Activity Activity: increase activity as tolerated Diet: advance to your usual diet, low fat, low cholesterol, low salt diet
== END 2019-03-22 17:20 | disposition home or self-care (01) ==
LOC: 3ANU 02:19 → EMEROOARM 02:19 → SUATTDRO 04:16 → 3ANU 04:57
PROVIDERS: ADMIT Pediatrics; ATTEND Internal Medicine

== ENCOUNTER 2021-01-07 14:47 | Observation (INO) ==
[2021-01-07] MEDS ORDERED: 0.9 % Sodium Chloride 250 ML IVC ONE (15:17)
[2021-01-07 15:28] LABS: Eosinophils % 0.4 %; Hematocrit 36.6 % (37.5-50.1); Hemoglobin 11.8 g/dL (12.9-16.9); Mean Corpuscular HGB Conc 32.2 g/dL (31.6-35.5); Mean Corpuscular Hemoglobin 29.2 pg (28.0-33.3); Mean Corpuscular Volume 90.6 fL (83.0-100.0); Red Blood Count 4.04 M/mcL (4.19-5.50)
[2021-01-07 15:29] LABS: Basophils % 0.4 %; Immature Platelets 14.7 % (1.1-6.1); Lymphocytes # 1.4 K/mcL (0.6-4.6); Lymphocytes % 29.2 %; Mean Platelet Volume 12.7 fL (9.4-12.4); Monocytes # 1.1 K/mcL (0.0-1.3); Monocytes % 21.7 %; Neutrophils # 2.3 K/mcL (1.6-8.9); Platelet Count 49 K/mcL (140-400); Red Cell Distribution Width 13.4 % (11.5-14.5); Segmented Neutrophils % 46.3 %; White Blood Count 4.9 K/mcL (4.3-11.1)
[2021-01-07 15:54] LABS: Alanine Aminotransferase 6 Units/L (7-52); Albumin 4.3 g/dL (3.5-5.7); Albumin/Globulin Ratio 1.3 (1.1-2.2); Alkaline Phosphatase 62 Units/L (34-104); Aspartate Amino Transferase 19 Units/L (13-39); BUN/Creatinine Ratio 13 (6-26); Bilirubin,Indirect 0.4 mg/dL (0.0-1.0); Bilirubin,Total 0.4 mg/dL (0.3-1.0); Blood Urea Nitrogen 21 mg/dL (8-23); Calcium 9.2 mg/dL (8.6-10.3); Carbon Dioxide 21 mEq/L (23-29); Chloride 112 mEq/L (98-107); Globulin 3.3 g/dL (2.4-3.5); Glucose 102 mg/dL (70-105); Osmolality,Calculated 293 (280-300); Potassium 4.3 mEq/L (3.5-5.1); Sodium 140 mEq/L (136-145); Total Protein 7.6 g/dL (6.4-8.9); Troponin I < 0.03 ng/mL (< 0.04); eGFR For African Americans 50 (> 60); eGFR For Non-African Americans 41 (> 60)
[2021-01-07 15:55] LABS: Platelet Estimate Normal (Normal)
[2021-01-07] MEDS ORDERED: Naloxone 0.4 MG/ML INJ IVP PRN (17:00)
[2021-01-07] MEDS ORDERED: Ondansetron 4 MG/2 ML VIAL IVP PRN (17:00)
[2021-01-07] MEDS ORDERED: tiZANidine 4 MG TABLET PO PRN (17:18)
[2021-01-07] MEDS ORDERED: *HR* OxyCODONE/APAP 7.5/325 TABLET PO PRN (17:18)
[2021-01-07] MEDS ORDERED: Nitroglycerin 0.4 MG TAB.SUBL SL PRN (17:18)
[2021-01-07] MEDS: Pantoprazole 40 MG VIAL IVP SCH (18:46)
[2021-01-07 21:06] LABS: Adenovirus F 40/41 PCR Not detected (Not detect); Astrovirus PCR Not detected (Not detect); C.difficile Toxin A/B Gene PCR Not detected (Not detect); Campylobacter by PCR Not detected (Not detect); Cryptosporidium by PCR Not detected (Not detect); Cyclospora cayetanensis PCR Not detected (Not detect); E. coli O157 by PCR Not detected (Not detect); Entamoeba histolytica PCR Not detected (Not detect); Enteroaggregative E.coli(EAEC) Not detected (Not detect); Enteropathogenic E.coli(EPEC) Not detected (Not detect); Enterotoxigenic E.coli (ETEC) Not detected (Not detect); Giardia lamblia PCR Not detected (Not detect); Norovirus GI/GII PCR Not detected (Not detect); Plesiomonas shigelloides PCR Not detected (Not detect); Rotavirus A PCR Not detected (Not detect); Salmonella PCR Not detected (Not detect); Sapovirus PCR Not detected (Not detect); Shig/EnteroinvasiveE coli EIEC Not detected (Not detect); Shigalike tox-prod E coli STEC Not detected (Not detect); Vibrio PCR Not detected (Not detect); Vibrio cholerae PCR Not detected (Not detect); Yersinia enterocolitica PCR Not detected (Not detect)
[2021-01-07] MEDS: Gabapentin 300 MG CAPSULE PO SCH (21:48)
[2021-01-07] MEDS: Carbidopa/Levodopa 25/100 TABLET PO SCH (21:49)
[2021-01-08 02:13] LABS: Hemoglobin 11.1 g/dL (12.9-16.9)
[2021-01-08 02:15] LABS: Eosinophils % 0.5 %; Hematocrit 33.4 % (37.5-50.1); Immature Granulocytes % 1.8 % (0-4); Immature Platelets 12.2 % (1.1-6.1); Lymphocytes # 1.3 K/mcL (0.6-4.6); Lymphocytes % 30.3 %; Mean Corpuscular HGB Conc 33.2 g/dL (31.6-35.5); Mean Corpuscular Hemoglobin 29.8 pg (28.0-33.3); Mean Corpuscular Volume 89.5 fL (83.0-100.0); Mean Platelet Volume 13.1 fL (9.4-12.4); Monocytes # 0.9 K/mcL (0.0-1.3); Monocytes % 20.8 %; Red Blood Count 3.73 M/mcL (4.19-5.50); Red Cell Distribution Width 13.4 % (11.5-14.5); Segmented Neutrophils % 46.6 %; White Blood Count 4.3 K/mcL (4.3-11.1)
[2021-01-08 02:21] LABS: Platelet Count 49 K/mcL (140-400)
[2021-01-08 02:35] LABS: Calcium 8.8 mg/dL (8.6-10.3); Potassium 3.9 mEq/L (3.5-5.1)
[2021-01-08 02:58] LABS: Folate > 22.3 ng/mL (3.0-16.0); Vitamin B12 427 pg/mL (250-1100)
[2021-01-08 03:01] LABS: Platelet Estimate Decreased (Normal)
[2021-01-08] MEDS: Pantoprazole 40 MG VIAL IVP SCH ×2 (05:02→17:38)
[2021-01-08] MEDS: Metoprolol XL (24 HR) Succ 50 MG TAB.ER.24H PO SCH (09:03)
[2021-01-08] MEDS: amLODIPine 5 MG TABLET PO SCH (09:03)
[2021-01-08] MEDS: Gabapentin 300 MG CAPSULE PO SCH ×2 (09:03→20:43)
[2021-01-08] MEDS: Multivit/Ca/Min/Fe/FA 1 TAB TABLET PO SCH (09:03)
[2021-01-08] MEDS: Levothyroxine 25 MCG TABLET PO SCH (09:04)
[2021-01-08] MEDS: Carbidopa/Levodopa 25/100 TABLET PO SCH ×2 (09:04→20:43)
[2021-01-08 16:46] LABS: Adenovirus Not Detected (Not Detect); Bordetella Pertussis Not Detected (Not Detect); Chlamydophila pneumoniae Not Detected (Not Detect); Coronavirus 229E Not Detected (Not Detect); Coronavirus HKU1 Not Detected (Not Detect); Coronavirus NL63 DETECTED (Not Detect); Coronavirus OC43 Not Detected (Not Detect); Human Metapneumovirus Not Detected (Not Detect); Human Rhinovirus/Enterovirus Not Detected (Not Detect); Influenza A Subtype 2009 H1 Not Detected (Not Detect); Influenza B Not Detected (Not Detect); Mycoplasma pneumoniae Not Detected (Not Detect); Parainfluenza Virus 1 Not Detected (Not Detect); Parainfluenza Virus 2 Not Detected (Not Detect); Parainfluenza Virus 3 Not Detected (Not Detect); Parainfluenza Virus 4 Not Detected (Not Detect); Respiratory Syncytial Virus Not Detected (Not Detect); SARS-CoV-2 Not Detected (Not Detect)
[2021-01-09] MEDS: Pantoprazole 40 MG VIAL IVP SCH (05:19)
[2021-01-09 06:15] LABS: Hematocrit 34.3 % (37.5-50.1); Red Cell Distribution Width 13.5 % (11.5-14.5)
[2021-01-09 06:16] LABS: Immature Platelets 14.6 % (1.1-6.1); Mean Corpuscular HGB Conc 32.1 g/dL (31.6-35.5); Mean Corpuscular Hemoglobin 29.2 pg (28.0-33.3); Mean Platelet Volume 12.3 fL (9.4-12.4); Red Blood Count 3.77 M/mcL (4.19-5.50); White Blood Count 4.8 K/mcL (4.3-11.1)
[2021-01-09 06:49] LABS: Calcium 8.8 mg/dL (8.6-10.3); Potassium 3.6 mEq/L (3.5-5.1); Thyroid Stimulating Hormone 2.62 mcIU/mL (0.340-5.600)
[2021-01-09] MEDS: Multivit/Ca/Min/Fe/FA 1 TAB TABLET PO SCH (13:35)
[2021-01-09] MEDS: Metoprolol XL (24 HR) Succ 50 MG TAB.ER.24H PO SCH (13:36)
[2021-01-09] MEDS: Levothyroxine 25 MCG TABLET PO SCH (13:36)
[2021-01-09] MEDS: Carbidopa/Levodopa 25/100 TABLET PO SCH (13:38)
[2021-01-09] MEDS: Gabapentin 300 MG CAPSULE PO SCH (13:38)
[2021-01-09] MEDS: amLODIPine 5 MG TABLET PO SCH (13:40)
[2021-01-09 14:14] VITALS: BP 108/55
[2021-01-09] MEDS ORDERED: 0.9 % Sodium Chloride 10 ML PF VIAL IVP ONE (15:52)
[2021-01-09] MEDS ORDERED: Lidocaine -MPF 2% 5 ML VIAL SQ ONE (15:52)
[2021-01-09] MEDS ORDERED: *HR* Propofol 500 MG/50 ML BOTTLE IVP ONE (15:52)
[2021-01-12] MEDS ORDERED: Cholecalciferol (D-3) 1,000 UNIT (25MCG) TABLET PO SCH (17:18)
== END 2021-01-09 15:53 | disposition home or self-care (01) ==
LOC: 3BNU 14:47 → EMEROOARM 14:47 → SUATTDRO 16:59 → 3BNU 17:54
PROVIDERS: ADMIT Internal Medicine; ATTEND Internal Medicine

== ENCOUNTER 2021-08-02 12:00 | Inpatient (IN) ==
[2021-08-02] MEDS ORDERED: Ipratropium/Albuterol Neb 3 ML IH ONE (13:28)
[2021-08-02 14:06] LABS: Hematocrit 35.1 % (37.5-50.1); Hemoglobin 11.1 g/dL (12.9-16.9); Mean Corpuscular HGB Conc 31.6 g/dL (31.6-35.5); Mean Corpuscular Hemoglobin 29.1 pg (28.0-33.3); Mean Corpuscular Volume 92.1 fL (83.0-100.0); Nucleated Red Blood Cells 0.3 /100 WBC (0); Red Blood Count 3.81 M/mcL (4.19-5.50); Red Cell Distribution Width 14.3 % (11.5-14.5); White Blood Count 7.6 K/mcL (4.3-11.1)
[2021-08-02 14:07] LABS: Platelet Count 43 K/mcL (140-400)
[2021-08-02 14:13] LABS: BUN/Creatinine Ratio 16 (6-26); Blood Urea Nitrogen 31 mg/dL (8-23); Calcium 9.1 mg/dL (8.6-10.3); Carbon Dioxide 22 mEq/L (23-29); Chloride 104 mEq/L (98-107); Glucose 76 mg/dL (70-105); Osmolality,Calculated 289 (280-300); Sodium 137 mEq/L (136-145); Troponin I < 0.03 ng/mL (< 0.04); eGFR For African Americans 40 (> 60); eGFR For Non-African Americans 33 (> 60)
[2021-08-02] MEDS ORDERED: levoFLOXacin 750 MG/150 ML 750 MG/150 ML BAG IVPB ONE (14:15)
[2021-08-02 14:28] LABS: Lymphocytes # 1.2 K/mcL (0.6-4.6); Neutrophils # 4.3 K/mcL (1.6-8.9)
[2021-08-02 14:29] LABS: Platelet Estimate Decreased (Normal)
[2021-08-02 14:31] LABS: Influenza A PCR Negative (Negative); Influenza B PCR Negative (Negative); Resp. Syncytial Virus PCR Negative (Negative)
[2021-08-02 14:43] LABS: SARS-CoV-2 by PCR (In House) Positive (Negative)
[2021-08-02] MEDS ORDERED: Naloxone 0.4 MG/ML INJ IVP PRN (15:32)
[2021-08-02] MEDS ORDERED: Melatonin 3 MG TABLET PO PRN (15:32)
[2021-08-02] MEDS ORDERED: Ondansetron ODT 4 MG TAB.RAPDIS SL PRN (15:32)
[2021-08-02 15:48] LABS: Bilirubin,Urine Negative (Negative); Blood,Urine Trace (Negative); Clarity,Urine Clear (Clear); Color,Urine Light-Yellow (Yellow); Glucose,Urine (UA) Normal (Normal); Hyaline Casts,Urine Few per lpf (None Seen); Ketones,Urine Trace mg/dL (Negative); Leukocyte Esterase,Urine Negative (Negative); Nitrite,Urine Negative (Negative); Protein,Urine 100 mg/dL (Neg-Trace); RBC,Urine 0-3 per hpf (0-3); Specific Gravity,Urine 1.016 (1.010-1.025); Squamous Epithelial Cell,Urine Few per hpf (None-Few); Urobilinogen,Urine Normal (Normal)
[2021-08-02 15:55] LABS: C-Reactive Protein 71 mg/L (Less than 10); Magnesium 1.5 mg/dL (1.6-2.6); Phosphorous 3.3 mg/dL (2.7-4.5)
[2021-08-02] MEDS ORDERED: Nitroglycerin 0.4 MG TAB.SUBL SL PRN (17:45)
[2021-08-02] MEDS: Gabapentin 300 MG CAPSULE PO SCH (21:17)
[2021-08-02] MEDS: Carbidopa/Levodopa 25/100 TABLET PO SCH (21:17)
[2021-08-03] MEDS: Levothyroxine 25 MCG TABLET PO SCH (05:21)
[2021-08-03] MEDS: MethylPREDNISolone 40 MG/ML VIAL IVP SCH ×2 (05:21→16:58)
[2021-08-03 06:08] LABS: Hemoglobin 10.5 g/dL (12.9-16.9)
[2021-08-03 06:10] LABS: Hematocrit 32.9 % (37.5-50.1); Immature Platelets 22.3 % (1.1-6.1); Lymphocytes # 0.5 K/mcL (0.6-4.6); Mean Corpuscular HGB Conc 31.9 g/dL (31.6-35.5); Mean Corpuscular Hemoglobin 29.1 pg (28.0-33.3); Mean Corpuscular Volume 91.1 fL (83.0-100.0); Red Blood Count 3.61 M/mcL (4.19-5.50); Red Cell Distribution Width 13.9 % (11.5-14.5); White Blood Count 6.3 K/mcL (4.3-11.1)
[2021-08-03 06:19] LABS: Calcium 8.8 mg/dL (8.6-10.3); Platelet Count 34 K/mcL (140-400); Potassium 4.7 mEq/L (3.5-5.1)
[2021-08-03 06:25] LABS: Thyroid Stimulating Hormone 1.12 mcIU/mL (0.340-5.600)
[2021-08-03] MEDS: Metoprolol XL (24 HR) Succ 50 MG TAB.ER.24H PO SCH (07:54)
[2021-08-03] MEDS: Benzonatate 100 MG CAPSULE PO PRN (07:54)
[2021-08-03] MEDS: Gabapentin 300 MG CAPSULE PO SCH ×2 (07:54→20:59)
[2021-08-03] MEDS: Magnesium Oxide 400 MG TABLET PO SCH (07:54)
[2021-08-03] MEDS: amLODIPine 5 MG TABLET PO SCH (07:55)
[2021-08-03] MEDS: Carbidopa/Levodopa 25/100 TABLET PO SCH ×2 (07:55→20:59)
[2021-08-03 08:11] LABS: Monocytes # 0.8 K/mcL (0.0-1.3); Neutrophils # 4.7 K/mcL (1.6-8.9)
[2021-08-03 08:12] LABS: Platelet Estimate Decreased (Normal)
[2021-08-03] MEDS ORDERED: Dexamethasone Sodium Phos/PF 10 MG/ML VIAL IVP SCH (09:00)
[2021-08-03] MEDS: Ipratropium 1 PUFF INHALER IH SCH ×5 (10:47→23:54)
[2021-08-04 03:00] LABS: Nucleated Red Blood Cells 0.3 /100 WBC (0)
[2021-08-04 03:02] LABS: Hematocrit 32.5 % (37.5-50.1); Hemoglobin 10.7 g/dL (12.9-16.9); Immature Platelets 22.2 % (1.1-6.1); Lymphocytes # 0.4 K/mcL (0.6-4.6); Mean Corpuscular HGB Conc 32.9 g/dL (31.6-35.5); Mean Corpuscular Hemoglobin 29.9 pg (28.0-33.3); Mean Corpuscular Volume 90.8 fL (83.0-100.0); Red Blood Count 3.58 M/mcL (4.19-5.50); Red Cell Distribution Width 13.8 % (11.5-14.5); White Blood Count 7.1 K/mcL (4.3-11.1)
[2021-08-04 03:07] LABS: Platelet Count 36 K/mcL (140-400)
[2021-08-04 03:19] LABS: Calcium 9.1 mg/dL (8.6-10.3); Potassium 4.3 mEq/L (3.5-5.1)
[2021-08-04 03:25] LABS: Monocytes # 0.6 K/mcL (0.0-1.3); Neutrophils # 5.4 K/mcL (1.6-8.9); Platelet Estimate Decreased (Normal)
[2021-08-04 03:26] LABS: Anisocytosis 1+ (Not Present)
[2021-08-04] MEDS: Ipratropium 1 PUFF INHALER IH SCH ×6 (03:51→23:47)
[2021-08-04] MEDS: MethylPREDNISolone 40 MG/ML VIAL IVP SCH (05:29)
[2021-08-04] MEDS: Levothyroxine 25 MCG TABLET PO SCH (05:30)
[2021-08-04] MEDS: amLODIPine 5 MG TABLET PO SCH (08:06)
[2021-08-04] MEDS: Metoprolol XL (24 HR) Succ 50 MG TAB.ER.24H PO SCH (08:06)
[2021-08-04] MEDS: Magnesium Oxide 400 MG TABLET PO SCH (08:08)
[2021-08-04] MEDS: Gabapentin 300 MG CAPSULE PO SCH ×2 (08:09→20:13)
[2021-08-04] MEDS: Carbidopa/Levodopa 25/100 TABLET PO SCH ×2 (08:09→20:13)
[2021-08-04] MEDS: predniSONE 20 MG TABLET PO SCH (12:14)
[2021-08-04] MEDS ORDERED: Chloraseptic Spray 177 ML BOTTLE MM PRN (22:25)
[2021-08-05] MEDS: Ipratropium 1 PUFF INHALER IH SCH ×3 (03:40→11:13)
[2021-08-05 04:09] LABS: Monocytes % 18.2 %
[2021-08-05 04:11] LABS: Basophils % 0.2 %; Hematocrit 32.4 % (37.5-50.1); Hemoglobin 10.6 g/dL (12.9-16.9); Immature Granulocytes % 7.4 % (0-4); Immature Platelets 19.7 % (1.1-6.1); Lymphocytes % 10.7 %; Mean Corpuscular HGB Conc 32.7 g/dL (31.6-35.5); Mean Corpuscular Hemoglobin 29.9 pg (28.0-33.3); Mean Corpuscular Volume 91.5 fL (83.0-100.0); Monocytes # 1.7 K/mcL (0.0-1.3); Neutrophils # 5.8 K/mcL (1.6-8.9); Red Blood Count 3.54 M/mcL (4.19-5.50); Segmented Neutrophils % 63.5 %; White Blood Count 9.1 K/mcL (4.3-11.1)
[2021-08-05 04:30] LABS: Calcium 9.3 mg/dL (8.6-10.3); Potassium 3.9 mEq/L (3.5-5.1)
[2021-08-05 04:31] LABS: Platelet Count 38 K/mcL (140-400)
[2021-08-05 04:39] LABS: Platelet Estimate Decreased (Normal)
[2021-08-05] MEDS: Levothyroxine 25 MCG TABLET PO SCH (05:32)
[2021-08-05 10:52] VITALS: BP 128/61; PULSE 87; TEMP 98.8
[2021-08-05] MEDS: predniSONE 20 MG TABLET PO SCH (10:53)
[2021-08-05] MEDS: Magnesium Oxide 400 MG TABLET PO SCH (10:53)
[2021-08-05] MEDS: amLODIPine 5 MG TABLET PO SCH (10:53)
[2021-08-05] MEDS: Carbidopa/Levodopa 25/100 TABLET PO SCH (10:53)
[2021-08-05] MEDS: Metoprolol XL (24 HR) Succ 50 MG TAB.ER.24H PO SCH (10:53)
[2021-08-05] MEDS: Benzonatate 100 MG CAPSULE PO PRN (10:54)
[2021-08-05] MEDS: Gabapentin 300 MG CAPSULE PO SCH (10:54)
[2021-08-05 11:20] VITALS: O2SAT 90
== END 2021-08-05 11:42 | disposition home health service (06) | DRG 177 ==
LOC: 3ANU 12:00 → EMEROOARM 12:00 → SUATTDRO 15:50 → 3ANU 17:10
PROVIDERS: ADMIT Hospitalist; ATTEND Internal Medicine